=== PATIENT | female | born 1970 | race Hispanic/Latino ===

== ENCOUNTER 2018-01-01 19:40 | Emergency (ER) | payer SELFPAY ==
[2018-01-01 20:38] LABS: Absolute Lymphocytes (CBC) 1.7 K/uL (0.7-4.9); Absolute Monocytes 0.6 K/uL (0.1-1.3); Basophils % 0.4 % (0-1.3); Eosinophils % 2.4 % (0-4.4); Hematocrit 37.4 % (36.0-45.0); Lymphocytes % 22.2 % (15.3-44.8); MCH 32.7 pg (27.0-35.0); MCV 94.6 fL (80-100); MPV 10.1 fL (7.6-11.3); Monocytes % 7.7 % (3.3-12.3); RBC Red Blood Cell Count 3.96 M/uL (3.86-4.86)
[2018-01-01] MEDS ORDERED: LIDOCAINE VISCOUS 2% SOLN 15 ML UDC ONE (20:38)
[2018-01-01] MEDS ORDERED: MAGNE/ALUM HYDROXD 30 ML UCUP ONE (20:38)
[2018-01-01] MEDS ORDERED: FAMOTIDINE 20 MG/2 ML VIAL IV ONE (20:39)
[2018-01-01 20:54] LABS: Bilirubin Direct 0.1 mg/dL (0-0.2); Bilirubin Total 0.5 mg/dL (0.2-1.0); Potassium 3.9 mmol/L (3.5-5.1); Protein, Total 7.8 g/dL (6.4-8.2)
--- NOTE | 2018-01-02 00:02 | EDPHYS ---
Physician Documentation [facility] Name: Zeny Alcazar Age: 47 yrs Sex: Female : 1970 Arrival Date: 01/01/2018 Time: 19:44 Bed 17 Private MD: ED Physician Sean Chavez HPI: 01/01 21:29 This 47 yrs old Female presents to ER via Ambulatory with complaints of jr8 Abdominal Pain, Abdominal Swelling. 21:29 The patient presents with abdominal pain in the epigastric area. Onset: The jr8 symptoms/episode began/occurred acutely, yesterday. The symptoms do not radiate. Associated signs and symptoms: none. The symptoms are described as burning. Modifying factors: The symptoms are alleviated by nothing, the symptoms are aggravated by nothing. Severity of pain: At its worst the pain was mild in the emergency department the pain is unchanged. The patient has not experienced similar symptoms in the past. The patient has not recently seen a physician. 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 - Social history:: Smoking status: Patient/guardian denies using tobacco. - Ebola Screening: : Patient denies travel to an Ebola-affected area in the 21 days before illness onset. ROS: 21:29 Eyes: Negative for injury, pain, redness, and discharge, ENT: Negative for injury, jr8 pain, and discharge, Neck: Negative for injury, pain, and swelling, Cardiovascular: Negative for chest pain, palpitations, and edema, Respiratory: Negative for shortness of breath, cough, wheezing, and pleuritic chest pain, Back: Negative for injury and pain, MS/Extremity: Negative for injury and deformity, Skin: Negative for injury, rash, and discoloration, Neuro: Negative for headache, weakness, numbness, tingling, and seizure. 21:29 Abdomen/GI: Positive for abdominal pain, Negative for nausea, vomiting, and diarrhea, abdominal distension, anorexia, dysphagia, hematemesis, black/tarry stool, rectal pain, rectal bleeding, bowel incontinence, flatulence. Exam: 21:29 Cardiovascular: Regular rate and rhythm with a normal S1 and S2. No gallops, murmurs, jr8 or rubs. Normal PMI, no JVD. No pulse deficits. Respiratory: Lungs have equal breath sounds bilaterally, clear to auscultation and percussion. No rales, rhonchi or wheezes noted. No increased work of breathing, no retractions or nasal flaring. Back: No spinal tenderness. No costovertebral tenderness. Full range of motion. Skin: Warm, dry with normal turgor. Normal color with no rashes, no lesions, and no evidence of cellulitis. MS/ Extremity: Pulses equal, no cyanosis. Neurovascular intact. Full, normal range of motion. Neuro: Awake and alert, GCS 15, oriented to person, place, time, and situation. Cranial nerves II-XII grossly intact. Motor strength 5/5 in all extremities. Sensory grossly intact. Cerebellar exam normal. Normal gait. 21:29 Abdomen/GI: Inspection: abdomen appears normal, Bowel sounds: active, all quadrants, Palpation: soft, in all quadrants, mild abdominal tenderness, in the epigastric area and right upper quadrant, mass, is not appreciated, rebound tenderness, is not appreciated, voluntary guarding, is not appreciated, involuntary guarding, is not appreciated, no appreciated organomegaly, Indicators: McBurney's point is not tender, Zimmerman's sign is negative, Rovsing's sign is negative, Liver: no appreciated palpable abnormalities, tenderness, is not appreciated. Vital Signs: 19:57 BP 135 / 93; Pulse 67; Resp 18; Temp 97.3; Pulse Ox 95% on R/A; Weight 77.11 kg (R); aj1 Height 5 ft. 0 in. (152.40 cm) (R); Pain 7/10; 22:23 BP 122 / 79; Pulse 64; Resp 17 S; Pulse Ox 95% on R/A; jd3 23:36 BP 126 / 89; Pulse 65; Resp 16 S; Pulse Ox 98% on R/A; jd3 01/02 00:21 BP 127 / 76; Pulse 65; Resp 16 S; Pulse Ox 97% on R/A; jd3 01/01 19:57 Body Mass Index 33.20 (77.11 kg, 152.40 cm) aj1 MDM: 01/01 20:06 Patient medically screened. jr8 23:59 Data reviewed: vital signs, nurses notes, lab test result(s), radiologic studies, jr8 ultrasound, and as a result, I will discharge patient. Data interpreted: Pulse oximetry: on room air is 98 %. Interpretation: normal. 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 Response to treatment: the patient's symptoms have markedly improved after treatment. 01/01 20:06 Order name: Basic Metabolic Panel; Complete Time: 21:18 01/01 20:06 Order name: CBC with Diff; Complete Time: 20:44 [facility] 01/01 20:06 Order name: Creatinine for Radiology; Complete Time: 21:18 [facility] 01/01 20:06 Order name: Hepatic Function; Complete Time: 21:18 01/01 20:06 Order name: Lipase; Complete Time: 21:18 01/01 21:19 Order name: US Abdomen Limited 01/01 20:06 Order name: IV Saline Lock; Complete Time: 20:32 8 01/01 20:06 Order name: Labs collected and sent; Complete Time: 20:32 jr Administered Medications: 20:43 Drug: Pepcid 20 mg Route: IVP; Site: right antecubital; jd3 01/02 00:22 Follow up: Response: No adverse reaction jd3 01/01 20:43 Drug: GI Cocktail without - (Maalox Suspension 30 ml, Lidocaine Liquid 2 % 15 jd3 ml) Route: PO; 01/02 00:22 Follow up: Response: No adverse reaction jd3 Disposition: 09:30 Co-signature as Attending Physician, Sean Chavez MD I agree with the assessment and polo plan of care. Disposition: 01/02/18 00:01 Discharged to Home. Impression: Gastritis, unspecified, without bleeding. - Condition is Stable. - Discharge Instructions: Gastritis, Adult. - Prescriptions for omeprazole 40 mg Oral capsule,delayed release(DR/EC) - take 1 capsule by ORAL route once daily before a meal; 30 capsule. - Medication Reconciliation Form, Thank You Letter, Antibiotic Education, Prescription Opioid Use form. - Follow up: Micah Washburn MD; When: 2 - 3 days; Reason: Recheck today's complaints, Continuance of care, Re-evaluation by your physician. - Problem is new. - Symptoms have improved. Signatures: Dispatcher [employer] EDNorma Díaz RN RN aj1 Sean Chavez MD MD cha Roszak, Josh, PA PA jr8 Clay Yancey RN RN jd3 Corrections: (The following items were deleted from the chart) 00:23 00:01 01/02/2018 00:01 Discharged to Home. Impression: Gastritis, unspecified, without jd3 bleeding. Condition is Stable. Forms are Medication Reconciliation Form, Thank You Letter, Antibiotic Education, Prescription Opioid Use. Follow up: Micah Washburn; When: 2 - 3 days; Reason: Recheck today's complaints, Continuance of care, Re-evaluation by your physician. Problem is new. Symptoms have improved. jr8
--- NOTE | 2018-01-02 00:02 | ER ---
Nurse's Notes [facility] Name: Zeny Alcazar Age: 47 yrs Sex: Female : 1970 Arrival Date: 01/01/2018 Time: 19:44 Bed 17 Private MD: Diagnosis: Gastritis, unspecified, without bleeding Presentation: 01/01 19:52 Presenting complaint: Patient states: She was eating some peppers the other day, then aj1 in the middle of the night she started having epigastric pain, bloating. It went away for a bit and now its back, but not as severe. Reports an burning pain the the epigastric area, radiated to RUQ, LUQ. Denies N/v/D. Transition of care: patient was not received from another setting of care. Onset of symptoms was December 30, 2017. Risk Assessment: Do you want to hurt yourself or someone else? Patient reports no desire to harm self or others. Initial Sepsis Screen: Does the patient meet any 2 criteria? No. Patient's initial sepsis screen is negative. Does the patient have a suspected source of infection? No. Patient's initial sepsis screen is negative. Care prior to arrival: None. 19:52 Method Of Arrival: Ambulatory aj1 19:52 Acuity: MICHAEL 3 aj1 Triage Assessment: 19:57 General: Appears in no apparent distress. uncomfortable, Behavior is calm, cooperative, aj1 appropriate for age. Pain: Complains of pain in epigastric area Pain radiates to right upper quadrant and left upper quadrant Pain currently is 7 out of 10 on a pain scale. at worst was 10 out of 10 on a pain scale. Quality of pain is described as burning, pressure, Pain began 2-3 days ago. Neuro: Level of Consciousness is awake, alert, obeys commands, Speech is normal. Cardiovascular: Patient's skin is warm and dry. Respiratory: Airway is patent Respiratory effort is even, unlabored, Respiratory pattern is regular, symmetrical. GI: Reports upper abdominal pain, bloating, Patient currently denies diarrhea, nausea, vomiting. 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 - Social history:: Smoking status: Patient/guardian denies using tobacco. - Ebola Screening: : Patient denies travel to an Ebola-affected area in the 21 days before illness onset. Screenin:47 Abuse screen: Denies threats or abuse. Nutritional screening: No deficits noted. jd3 Tuberculosis screening: No symptoms or risk factors identified. Fall Risk Ambulatory Aid- None/Bed Rest/Nurse Assist (0 pts). Gait- Normal/Bed Rest/Wheelchair (0 pts) Mental Status- Oriented to own ability (0 pts). Total Miguel Fall Scale indicates No Risk (0-24 pts). Assessment: 20:38 General: Appears in no apparent distress. uncomfortable, Behavior is calm, cooperative, jd3 appropriate for age. Pain: Complains of pain in abdomen Pain does not radiate. Quality of pain is described as aching, pressure, Is intermittent. Neuro: Level of Consciousness is awake, alert, obeys commands, Oriented to person, place, time, situation. 20:38 Cardiovascular: Capillary refill < 3 seconds Patient's skin is warm and dry. jd3 Respiratory: Airway is patent Respiratory effort is even, unlabored, Respiratory pattern is regular, symmetrical. GI: Abdomen is round Bowel sounds present X 4 quads. Abd is soft and non tender X 4 quads. Patient currently denies nausea, vomiting. : No signs and/or symptoms were reported regarding the genitourinary system. EENT: No signs and/or symptoms were reported regarding the EENT system. Derm: Skin is intact, Skin is dry, Skin is normal, Skin temperature is warm. Musculoskeletal: Circulation, motion, and sensation intact. Range of motion: intact in all extremities. 21:30 Reassessment: Patient appears in no apparent distress at this time. Patient and/or jd3 family updated on plan of care and expected duration. Pain level reassessed. Patient is alert, oriented x 3, equal unlabored respirations, skin warm/dry/pink. 22:23 Reassessment: Patient appears in no apparent distress at this time. Patient and/or jd3 family updated on plan of care and expected duration. Pain level reassessed. Patient is alert, oriented x 3, equal unlabored respirations, skin warm/dry/pink. Patient states feeling better. 23:37 Reassessment: Patient appears in no apparent distress at this time. Patient and/or jd3 family updated on plan of care and expected duration. Pain level reassessed. Patient is alert, oriented x 3, equal unlabored respirations, skin warm/dry/pink. 01/02 00:22 Reassessment: Patient appears in no apparent distress at this time. Patient and/or jd3 family updated on plan of care and expected duration. Pain level reassessed. Patient is alert, oriented x 3, equal unlabored respirations, skin warm/dry/pink. pt reported understanding of discharge instructions, even and steady gait upon discharge. Patient states feeling better. Vital Signs: 01/01 19:57 BP 135 / 93; Pulse 67; Resp 18; Temp 97.3; Pulse Ox 95% on R/A; Weight 77.11 kg (R); aj1 Height 5 ft. 0 in. (152.40 cm) (R); Pain 7/10; 22:23 BP 122 / 79; Pulse 64; Resp 17 S; Pulse Ox 95% on R/A; jd3 23:36 BP 126 / 89; Pulse 65; Resp 16 S; Pulse Ox 98% on R/A; jd3 01/02 00:21 BP 127 / 76; Pulse 65; Resp 16 S; Pulse Ox 97% on R/A; jd3 01/01 19:57 Body Mass Index 33.20 (77.11 kg, 152.40 cm) aj1 ED Course: 01/01 19:44 Patient arrived in ED. al2 19:56 Triage completed. aj1 19:57 Arm band placed on Patient placed in an exam room. aj1 20:02 Clay Yancey, EL is Primary Nurse. jd3 20:06 Jamin Hernandez PA is PHCP. jr8 20:06 Sean Chavez MD is Attending Physician. jr8 20:29 Inserted saline lock: 20 gauge in right antecubital area, using aseptic technique. jd3 Blood collected. 20:47 Patient has correct armband on for positive identification. Bed in low position. Call jd3 light in reach. Side rails up X 1. Adult w/ patient. 21:41 Ultrasound completed. Patient tolerated well. sg3 21:57 US Abdomen Limited In Process Unspecified. EDMS 01/02 00:01 Micah Washburn MD is Referral Physician. jr8 00:21 No provider procedures requiring assistance completed. IV discontinued, intact, jd3 bleeding controlled, No redness/swelling at site. Pressure dressing applied. Administered Medications: 01/01 20:43 Drug: Pepcid 20 mg Route: IVP; Site: right antecubital; jd3 01/02 00:22 Follow up: Response: No adverse reaction jd3 01/01 20:43 Drug: GI Cocktail without - (Maalox Suspension 30 ml, Lidocaine Liquid 2 % 15 jd3 ml) Route: PO; 01/02 00:22 Follow up: Response: No adverse reaction jd3 Outcome: 00:01 Discharge ordered by . jr8 00:21 Discharged to home ambulatory, with family. jd3 00:21 Condition: stable 00:21 Discharge instructions given to patient, family, Instructed on discharge instructions, follow up and referral plans. medication usage, Demonstrated understanding of instructions, follow-up care, medications, Prescriptions given X 1. 00:23 Patient left the ED. jd3 Signatures: Dispatcher [employer] EDAL Norma Pascal, RN RN aj1 Jamin Hernandez PA PA jr8 Clay Yancey RN RN jd3 Annie Heredia sg3 Nela Palacios Corrections: (The following items were deleted from the chart) 01/01 21:59 21:58 Ultrasound completed. Patient tolerated well. sg3 sg3
--- NOTE | 2018-01-02 07:55 | RAD REPORT ---
EXAM DESCRIPTION: US - Abdomen Exam Limited - 01/01/2018 9:59 pm CLINICAL HISTORY: Abdominal pain. Right upper quadrant pain COMPARISON: None. FINDINGS: The gallbladder wall is not thickened. A gallstone is not seen. The biliary tree is normal caliber. The liver has an increased echotexture consistent with fatty infiltration IMPRESSION: Unremarkable gallbladder ultrasound.
== END 2018-01-02 00:23 | disposition home or self-care (01) ==
LOC: ER 19:40
DX: K29.70 Gastritis, unspecified, without bleeding (principal); J45.909 Unspecified asthma, uncomplicated
CPT/HCPCS: 36415; 76705; 80048; 80076; 83690; 85025; 96374; 99284

== ENCOUNTER 2018-08-04 19:47 | Emergency (ER) | payer SELFPAY ==
[2018-08-04 21:21] LABS: Absolute Lymphocytes (CBC) 1.9 K/uL (0.7-4.9); Absolute Monocytes 0.6 K/uL (0.1-1.3); Absolute Neutrophil 4.7 K/uL (1.8-8.0); Basophils % 0.6 % (0-1.3); Eosinophils % 2.4 % (0-4.4); Hematocrit 36.5 % (36.0-45.0); Lymphocytes % 25.6 % (15.3-44.8); MPV 10.1 fL (7.6-11.3); Monocytes % 7.9 % (3.3-12.3); RBC Red Blood Cell Count 3.85 M/uL (3.86-4.86)
[2018-08-04 21:34] LABS: Potassium 4.2 mmol/L (3.5-5.1)
--- NOTE | 2018-08-04 22:55 | ER ---
Nurse's Notes [facility] Name: Zeny Alcazar Age: 48 yrs Sex: Female : 1970 Arrival Date: 08/04/2018 Time: 19:49 Bed 25 Private MD: Diagnosis: Right Parotitis;Headache Presentation: 08/04 20:04 Presenting complaint: Patient states: [place] a swollen gland to right side of face/neck lp1 that began today; States no pain to mouth, on movement; Pain only on palpation; Denies any fever, cough, congestion. Transition of care: patient was not received from another setting of care. Onset of symptoms was August 04, 2018. Risk Assessment: Do you want to hurt yourself or someone else? Patient reports no desire to harm self or others. Initial Sepsis Screen: Does the patient meet any 2 criteria? No. Patient's initial sepsis screen is negative. Does the patient have a suspected source of infection? No. Patient's initial sepsis screen is negative. Care prior to arrival: None. 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 - Social history:: Smoking status: Patient/guardian denies using tobacco. - Ebola Screening: : No symptoms or risks identified at this time. Screenin:07 Abuse screen: Denies threats or abuse. Denies injuries from another. Nutritional lp1 screening: No deficits noted. Tuberculosis screening: No symptoms or risk factors identified. Fall Risk None identified. Assessment: 20:20 General: Appears in no apparent distress. comfortable, Behavior is calm, cooperative, ca1 appropriate for age. Pain: Complains of pain in right jaw and right cheek Pain does not radiate. Pain currently is 6 out of 10 on a pain scale. Neuro: Level of Consciousness is awake, alert, obeys commands, Oriented to person, place, time, situation. Cardiovascular: Heart tones S1 S2 present Capillary refill < 3 seconds Patient's skin is warm and dry. Respiratory: Airway is patent Respiratory effort is even, unlabored, Respiratory pattern is regular, symmetrical, Breath sounds are clear bilaterally. Denies cough. GI: Abdomen is flat, non-distended, Bowel sounds present X 4 quads. Abd is soft and non tender X 4 quads. : No signs and/or symptoms were reported regarding the genitourinary system. EENT: Ear canal clear on right ear Throat is pink Reports pain behind Right Eye. Denies nasal congestion, difficulty swallowing. Derm: Skin is intact, is healthy with good turgor, Skin is pink, warm \T\ dry. Musculoskeletal: Circulation, motion, and sensation intact. 21:45 Reassessment: PT at CT scan. ca1 22:25 Reassessment: Patient appears in no apparent distress at this time. Patient and/or ca1 family updated on plan of care and expected duration. Pain level reassessed. Patient is alert, oriented x 3, equal unlabored respirations, skin warm/dry/pink. 23:01 Reassessment: patient for discharge after completing iv antibiotic. mg2 23:30 Reassessment: Patient appears in no apparent distress at this time. Patient is alert, ca1 oriented x 3, equal unlabored respirations, skin warm/dry/pink. Vital Signs: 20:07 BP 139 / 89; Pulse 69; Resp 18; Temp 98.4(O); Pulse Ox 100% on R/A; Weight 81.65 kg; lp1 Height 5 ft. 0 in. (152.40 cm); Pain 7/10; 21:10 BP 154 / 90; Pulse 65; Resp 18; Pulse Ox 99% on R/A; ca1 22:20 BP 139 / 76; Pulse 65; Resp 18; Pulse Ox 100% ; ca1 23:30 BP 117 / 73; Pulse 66; Resp 18; Pulse Ox 100% on R/A; ca1 20:07 Body Mass Index 35.15 (81.65 kg, 152.40 cm) lp1 ED Course: 19:49 Patient arrived in ED. es 20:06 Triage completed. lp1 20:06 Arm band placed on right wrist. lp1 20:20 Patient has correct armband on for positive identification. Placed in gown. Bed in low ca1 position. Call light in reach. Side rails up X 1. 20:20 Pulse ox on. NIBP on. ca1 20:24 Palma Sutherland, RN is Primary Nurse. ca1 20:43 Sean Rincon PA is PHCP. cp 20:43 Charlie Jenkins MD is Attending Physician. cp 21:10 Radiology exam delayed due to lab results not completed at this time. (BUN/Creatinine). vr 21:13 No provider procedures requiring assistance completed. Inserted saline lock: 20 gauge mg2 in left antecubital area, using aseptic technique. Blood collected. 21:35 Radiology exam delayed due to lab results not completed at this time. (BUN/Creatinine). vr 21:[address] via wheelchair. vr 22:07 CT Head Brain wo Cont In Process Unspecified. EDMS 22:08 Soft Tissue Neck W/Contr In Process Unspecified. EDMS 22:53 Sandra Ordoñez MD is Referral Physician. cp 23:32 IV discontinued, intact, bleeding controlled, No redness/swelling at site. Pressure ca1 dressing applied. Administered Medications: 22:57 Drug: Clindamycin 900 mg Route: IVPB; Infused Over: 30 mins; Site: left antecubital; mg2 23:33 Follow up: Response: No adverse reaction ca1 23:33 Follow up: IV Status: Completed infusion ca1 Outcome: 22:54 Discharge ordered by MD. cp 23:35 Discharged to home ambulatory. ca1 23:35 Condition: stable 23:35 Discharge instructions given to patient, Instructed on discharge instructions, follow up and referral plans. medication usage, Demonstrated understanding of instructions, follow-up care, medications, Prescriptions given X 2. 23:35 Patient left the ED. ca1 Signatures: Dispatcher [employer] EDMT Lindy Gonzalez Victoria vr Shannon Tompkins, RN RN lp1 Sean Rincon PA PA cp Reno Romeo RN RN mg2 Palma Sutherland RN RN ca1
--- NOTE | 2018-08-04 22:55 | EDPHYS ---
Physician Documentation [facility] Name: Zeny Alcazar Age: 48 yrs Sex: Female : 1970 Arrival Date: 08/04/2018 Time: 19:49 Bed 25 Private MD: ED Physician Charlie Jenkins HPI: 08/04 21:05 This 48 yrs old Female presents to ER via Ambulatory with complaints of cp Swollen Glands. 21:05 The patient or guardian complains of pain, that is acute, swelling. cp 21:05 The symptoms are located right posterior and lower jaw. cp 21:05 Onset: The symptoms/episode began/occurred this morning. cp 21:05 Context: The neck injury/problem resulted from from unknown cause. Associated signs and cp symptoms: Pertinent positives: headache, Pertinent negatives: fever, vomiting, dental pain. The pain does not radiate. Severity of symptoms: in the emergency department the symptoms are actually worse. 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 - Social history:: Smoking status: Patient/guardian denies using tobacco. - Ebola Screening: : No symptoms or risks identified at this time. ROS: 21:10 Constitutional: Negative for body aches, chills, fever, poor PO intake. cp 21:10 Eyes: Negative for injury, pain, redness, and discharge. cp 21:10 ENT: Positive for of the right posterior lower jaw, swelling and pain, Negative for drainage from ear(s), ear pain, dental pain, difficulty swallowing, difficulty handling secretions, hoarseness. 21:10 Neck: Negative for stiffness. 21:10 Cardiovascular: Negative for chest pain, edema, palpitations. 21:10 Respiratory: Negative for cough, shortness of breath, wheezing. 21:10 Abdomen/GI: Negative for abdominal pain, nausea, vomiting, and diarrhea. 21:10 : Negative for urinary symptoms. 21:10 Skin: Negative for cellulitis, rash. 21:10 Neuro: Positive for headache, Negative for altered mental status, numbness, weakness. 21:10 All other systems are negative. Exam: 21:35 Constitutional: The patient appears in no acute distress, alert, awake, non-toxic, well cp developed, well nourished. 21:35 Head/face: Noted is swelling, that is mild, of the right posterior lower jaw, tenderness, that is moderate, Sinus tenderness, is not appreciated. 21:35 Eyes: Periorbital structures: appear normal, Pupils: equal, round, and reactive to light and accomodation, Extraocular movements: intact throughout, Conjunctiva: normal, no exudate, no injection, Sclera: no appreciated abnormality, Lids and lashes: appear normal, bilaterally. 21:35 ENT: External ear(s): are unremarkable, Ear canal(s): are normal, clear, TM's: bulging, is not appreciated, bilaterally, dullness, bilaterally, erythema, is not appreciated, bilaterally, Nose: is normal, Mouth: Lips: moist, Oral mucosa: pink and intact, moist, Gums: normal with healthy appearance, Tongue: is normal, abscess, is not appreciated, Posterior pharynx: Airway: no evidence of obstruction, patent, Tonsils: are normal in appearance, Uvula: midline, swelling, is not appreciated, erythema, is not appreciated, exudate, is not appreciated, Dental exam: abscess, is not appreciated, dental caries, not appreciated, pain, is not appreciated, Voice: is normal. 21:35 Neck: External neck: swelling, that is mild, right upper lateral neck, tenderness, that is mild. 21:35 Chest/axilla: Inspection: normal, Palpation: is normal, no crepitus, no tenderness. 21:35 Cardiovascular: Rate: normal, Rhythm: regular. 21:35 Respiratory: the patient does not display signs of respiratory distress, Respirations: normal, no use of accessory muscles, no retractions, no splinting, no tachypnea, labored breathing, is not present, Breath sounds: are clear throughout, no decreased breath sounds, no stridor, no wheezing. 21:35 Abdomen/GI: Exam negative for discomfort, distension, guarding, Inspection: abdomen appears normal. 21:35 Skin: cellulitis, is not appreciated, no rash present. 21:35 Neuro: Orientation: to person, place \T\ time. Mentation: is normal, Cerebellar function: is grossly normal, Motor: moves all fours, strength is normal, Sensation: is normal. Vital Signs: 20:07 BP 139 / 89; Pulse 69; Resp 18; Temp 98.4(O); Pulse Ox 100% on R/A; Weight 81.65 kg; lp1 Height 5 ft. 0 in. (152.40 cm); Pain 7/10; 21:10 BP 154 / 90; Pulse 65; Resp 18; Pulse Ox 99% on R/A; ca1 22:20 BP 139 / 76; Pulse 65; Resp 18; Pulse Ox 100% ; ca1 23:30 BP 117 / 73; Pulse 66; Resp 18; Pulse Ox 100% on R/A; ca1 20:07 Body Mass Index 35.15 (81.65 kg, 152.40 cm) lp1 MDM: 20:43 Patient medically screened. cp 21:30 Differential diagnosis: abscess, dental pain, lymphadenopathy. cp 22:52 Data reviewed: vital signs, nurses notes, lab test result(s), radiologic studies, CT cp scan, and as a result, I will discharge patient. 22:52 Counseling: I had a detailed discussion with the patient and/or guardian regarding: the cp historical points, exam findings, and any diagnostic results supporting the discharge/admit diagnosis, lab results, radiology results, the need for outpatient follow up, an ENT specialist, to return to the emergency department if symptoms worsen or persist or if there are any questions or concerns that arise at home. 08/04 21:02 Order name: CBC with Diff; Complete Time: 22:42 cp 08/04 21:02 Order name: BMP; Complete Time: 22:42 cp 08/04 21:02 Order name: Strep; Complete Time: 22:42 cp 08/04 21:07 Order name: CT Head Brain wo Cont cp 08/04 21:43 Order name: Throat Culture EDMS 08/04 21:02 Order name: IV; Complete Time: 21:13 cp 08/04 21:54 Order name: Soft Tissue Neck W/Contr EDMS Administered Medications: 22:57 Drug: Clindamycin 900 mg Route: IVPB; Infused Over: 30 mins; Site: left antecubital; mg2 23:33 Follow up: Response: No adverse reaction ca1 23:33 Follow up: IV Status: Completed infusion ca1 Disposition: 23:45 Chart complete. cp 08/05 03:56 Co-signature as Attending Physician, Charlie Jenkins MD I agree with the assessment and wa plan of care. Disposition: 08/04/18 22:54 Discharged to Home. Impression: Right Parotitis, Headache. - Condition is Stable. - Discharge Instructions: General Headache Without Cause, Parotitis. - Prescriptions for Clindamycin HCl 300 mg Oral Capsule - take 1 capsule by ORAL route every 6 hours for 10 days; 40 capsule. Ibuprofen 800 mg Oral Tablet - take 1 tablet by ORAL route every 8 hours As needed take with food; 30 tablet. - Medication Reconciliation Form, Thank You Letter, Antibiotic Education, Prescription Opioid Use form. - Follow up: Sandra Ordoñez MD; When: 2 - 3 days; Reason: Recheck today's complaints. - Problem is new. - Symptoms have improved. Signatures: Dispatcher [employer] EDWI Shannon Tompkins RN RN lp1 Sean Rincon PA PA Charlie Self MD MD ri Reno Romeo RN RN mg2 Palma Sutherland RN RN ca1 Corrections: (The following items were deleted from the chart) 08/04 21:54 21:08 Facial Bones W/ Con \T\ [id number].RAD.BRZ ordered. [facility] EDWI 22:55 22:54 08/04/2018 22:54 Discharged to Home. Impression: Right Parotitis. Condition is cp Stable. Forms are Medication Reconciliation Form, Thank You Letter, Antibiotic Education, Prescription Opioid Use. Follow up: Sandra Ordoñez; When: 2 - 3 days; Reason: Recheck today's complaints. Problem is new. Symptoms have improved. cp 23:35 22:55 08/04/2018 22:54 Discharged to Home. Impression: Right Parotitis; Headache. ca1 Condition is Stable. Discharge Instructions: Parotitis. Prescriptions for Clindamycin HCl 300 mg Oral Capsule - take 1 capsule by ORAL route every 6 hours for 10 days; 40 capsule, Ibuprofen 800 mg Oral Tablet - take 1 tablet by ORAL route every 8 hours As needed take with food; 30 tablet. and Forms are Medication Reconciliation Form, Thank You Letter, Antibiotic Education, Prescription Opioid Use. Follow up: Sandra Ordoñez; When: 2 - 3 days; Reason: Recheck today's complaints. Problem is new. Symptoms have improved. cp
[2018-08-04] MEDS ORDERED: CLINDAMYCIN 900MG/D5W 900 MG/50 ML IVPB IV ONE (23:05)
--- NOTE | 2018-08-07 20:59 | RAD REPORT ---
EXAM DESCRIPTION: CT - Soft Tissue Neck W/Contr - 08/04/2018 10:35 pm CLINICAL HISTORY: 48 years Female, swelling right side of face COMPARISON: CT head without contrast of the same day. TECHNIQUE: Contiguous axial images of the neck after the administration of IV contrast. This exam was performed according to our departmental dose-optimization program, which includes autom ated exposure control, adjustment of the mA and/or kV according to patient size and/or less of iterat lucinda reconstruction technique. FINDINGS: Thyroid: Within normal limits Submandibular: Unremarkable. Parotid: 0.9 x 0.8 cm enhancing rounded nodule is seen in the interior aspect of the superior right p arotid lobe. [place] tonsils: Unremarkable. Parapharyngeal fat: No displacement. Epiglottis: Unremarkable. Senior Energy Market Coordinator space: Unremarkable. Lymph nodes: Multiple nonenlarged multistation bilateral cervical lymph nodes are present. No lymphad enopathy. Prevertebral space: No edema. Vascular structures: Unremarkable. Intracranial compartment: Within normal limits. Paranasal sinuses: Trace air-fluid level in the left sphenoid sinus. Bones: Reversal of normal cervical lordosis centered at C5 Lungs: Apical lung zones are clear. IMPRESSION: 1. No acute abnormality of the soft tissue neck. 2. Subcentimeter superior right parotid lobe nodule. Finding could represent small intramammary lymph node versus pleomorphic adenoma. MRI face with and without contrast may be of diagnostic use. 3. Trace fluid layering in the left sphenoid sinus. Electronically signed by: Leon Muller DO 08/04/2018 10:17 PN CLINICAL DATA COORDINATOR Due to temporary technical issues with the PACS/Fluency reporting system, reports are being signed by the in house radiologist as a courtesy to ensure prompt reporting. The interpreting radiologist is f ully responsible for the content of the report.
--- NOTE | 2018-08-08 09:53 | RAD REPORT ---
EXAM DESCRIPTION: CT - Head Brain Wo Cont - 08/04/2018 10:35 pm CLINICAL HISTORY: 48 years Female HEADACHE COMPARISON: None. TECHNIQUE: Contiguous axial images of the brain were obtained without the administration of intraven ous contrast. This exam was performed according to our departmental dose-optimization program, which includes automated exposure control, adjustment of the mA and/or kV according to patient size and/or less of iterative reconstruction technique. FINDINGS: Brain: No acute intracranial hemorrhage. No acute territorial infarct. No extra-axial joan ection. No mass effect or herniation. Ventricles: Within normal limit in size and configuration. Globes and orbits: No acute abnormality, Bones: No acute osseous finding. Paranasal sinuses: Paranasal sinuses are clear. Mastoid air cells: Well pneumatized. Soft tissues: Within normal limits. Swine Nutritionist view shows no additional significant finding. IMPRESSION: No acute intracranial abnormality. Electronically signed by: Cedric Muller DO 08/04/2018 10:10 PM PAN DEVULCANIZER HELPER Due to temporary technical issues with the PACS/Fluency reporting system, reports are being signed by the in house radiologist as a courtesy to ensure prompt reporting. The interpreting radiologist is f ully responsible for the content of the report.
== END 2018-08-04 23:35 | disposition home or self-care (01) ==
LOC: ER 19:47
DX: K11.20 Sialoadenitis, unspecified (principal)
CPT/HCPCS: 36415; 70450; 70491; 80048; 85025; 87070; 87081; 96365; 99284; Q9967

== ENCOUNTER 2018-11-12 17:10 | Emergency (ER) | payer SELFPAY ==
--- NOTE | 2018-11-12 17:36 | ER ---
Nurse's Notes [facility] Name: Zeny Alcazar Age: 48 yrs Sex: Female : 1970 Arrival Date: 11/12/2018 Time: 17:12 Bed 14 Private MD: Diagnosis: Rash and other nonspecific skin eruption Presentation: 11/12 17:23 Presenting complaint: Patient states: Intermittent rash, itching and burning to lay ph cheeks and eyelids, denies fever or SOB. Transition of care: patient was not received from another setting of care. Onset of symptoms was November 12, 2018. Risk Assessment: Do you want to hurt yourself or someone else? Patient reports no desire to harm self or others. Initial Sepsis Screen: Does the patient meet any 2 criteria? No. Patient's initial sepsis screen is negative. Does the patient have a suspected source of infection? No. Patient's initial sepsis screen is negative. Care prior to arrival: None. 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 - Social history:: Smoking status: Patient/guardian denies using tobacco. - Ebola Screening: : Patient negative for fever greater than or equal to 101.5 degrees Fahrenheit, and additional compatible Ebola Virus Disease symptoms. Screenin:20 Abuse screen: Denies threats or abuse. Nutritional screening: No deficits noted. rb1 Tuberculosis screening: No symptoms or risk factors identified. Fall Risk None identified. Assessment: 17:20 General: Appears in no apparent distress. comfortable, Behavior is calm, cooperative, rb1 Denies fever. Pain: Denies pain. Neuro: Level of Consciousness is awake, alert, obeys commands, Oriented to person, place, time, situation. Cardiovascular: Capillary refill < 3 seconds is brisk in bilateral fingers. Respiratory: Airway is patent Respiratory effort is even, unlabored, Respiratory pattern is regular, symmetrical. GI: No signs and/or symptoms were reported involving the gastrointestinal system. : No signs and/or symptoms were reported regarding the genitourinary system. Derm: Rash noted that is itchy, red, on face c/o burning. Musculoskeletal: Range of motion: intact in all extremities. 17:40 Reassessment: Discharge pending due to shot time. rb1 18:11 Reassessment: Patient appears in no apparent distress at this time. No changes from rb1 previously documented assessment. Vital Signs: 17:24 BP 136 / 78; Pulse 65; Resp 18; Temp 98.1; Pulse Ox 97% on R/A; Weight 81.65 kg; Height ph 5 ft. 0 in. (152.40 cm); 18:11 BP 111 / 77; Pulse 62; Resp 17; Temp 98.1(O); Pulse Ox 97% on R/A; Pain 0/10; rb1 17:24 Body Mass Index 35.15 (81.65 kg, 152.40 cm) ph ED Course: 17:12 Patient arrived in ED. tw3 17:16 Eliane Platt, EL is Primary Nurse. rb1 17:16 Alejandro Burns PA is PHCP. [facility] 17:16 Archie Thomson MD is Attending Physician. [facility] 17:20 Patient has correct armband on for positive identification. Bed in low position. Call rb1 light in reach. Side rails up X 1. Pulse ox on. NIBP on. 17:24 Triage completed. ph 17:26 Arm band placed on Patient placed in an exam room, on a stretcher. ph 18:11 No provider procedures requiring assistance completed. Patient did not have IV access rb1 during this emergency room visit. Administered Medications: 17:40 Drug: Dexamethasone 10 mg Route: IM; Site: right deltoid; rb1 17:55 Follow up: Response: No adverse reaction rb1 Outcome: 17:36 Discharge ordered by . [facility] 18:11 Discharged to home ambulatory, with significant other. rb1 18:11 Condition: stable 18:11 Discharge instructions given to patient, Instructed on discharge instructions, follow up and referral plans. medication usage, Demonstrated understanding of instructions, follow-up care, medications, Prescriptions given X 2. 18:11 Patient left the ED. rb1 Signatures: Alejandro Burns PA PA Reyna Mar RN RN Eliane Platt RN RN rb1 Gerry, Tia tw3 Corrections: (The following items were deleted from the chart) 18:15 18:14 Patient left the ED. rb1 rb1
--- NOTE | 2018-11-12 17:36 | EDPHYS ---
Physician Documentation [facility] Name: Zeny Alcazar Age: 48 yrs Sex: Female : 1970 Arrival Date: 11/12/2018 Time: 17:12 Bed 14 Private MD: ED Physician Archie Thomson HPI: 11/12 17:31 This 48 yrs old Female presents to ER via Ambulatory with complaints of Rash. [facility] 17:31 Onset: The symptoms/episode began/occurred gradually, 5 day(s) ago. This is a 48 year jmm old female with a history of asthma that presents to the ED with complaints of a facial rash. Patient states the rash initially developed this past Tuesday with papular lesions. Patient used otc medications with no relief. Patient denies fever. . 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 - Social history:: Smoking status: Patient/guardian denies using tobacco. - Ebola Screening: : Patient negative for fever greater than or equal to 101.5 degrees Fahrenheit, and additional compatible Ebola Virus Disease symptoms. ROS: 17:31 Constitutional: Negative for fever, chills, and weight loss, Cardiovascular: Negative [facility] for chest pain, palpitations, and edema, Respiratory: Negative for shortness of breath, cough, wheezing, and pleuritic chest pain. 17:31 Skin: Positive for rash, swelling. 17:31 All other systems are negative. Exam: 17:31 Eyes: EOMI, no conjunctival erythema appreciated ENT: Moist Mucus Membranes Neck: jmm Trachea midline, Supple Chest/axilla: Normal chest wall appearance and motion. Cardiovascular: Regular rate and rhythm. No edema appreciated Respiratory: Normal respirations, no respiratory distress appreciated Abdomen/GI: Non distended, soft Back: Normal ROM 17:31 Constitutional: The patient appears in no acute distress, alert, awake. 17:31 Head/face: erythema noted to the face with pustular lesions noted to the forehead and the chin. . 17:31 Skin: erythema noted to the cheeks with pustular lesions noted to the forehead and chin. 17:31 Neuro: Orientation: is normal, Mentation: is normal, Memory: is normal. 17:31 Psych: Behavior/mood is pleasant, cooperative. Vital Signs: 17:24 BP 136 / 78; Pulse 65; Resp 18; Temp 98.1; Pulse Ox 97% on R/A; Weight 81.65 kg; Height ph 5 ft. 0 in. (152.40 cm); 18:11 BP 111 / 77; Pulse 62; Resp 17; Temp 98.1(O); Pulse Ox 97% on R/A; Pain 0/10; rb1 17:24 Body Mass Index 35.15 (81.65 kg, 152.40 cm) ph MDM: 17:31 Patient medically screened. [facility] 17:31 ED course: Patient is alert and non toxic in appearance in the ED. Symptoms appear [facility] consistent with folliculitis. Patient is advised to follow up with dermatology and otherwise advised to return to the ED if she develops increased swelling, fever, or any other concerning symptoms. . 17:35 Data reviewed: vital signs, nurses notes. Counseling: I had a detailed discussion with brittney the patient and/or guardian regarding: the historical points, exam findings, and any diagnostic results supporting the discharge/admit diagnosis, the need for outpatient follow up, to return to the emergency department if symptoms worsen or persist or if there are any questions or concerns that arise at home. Administered Medications: 17:40 Drug: Dexamethasone 10 mg Route: IM; Site: right deltoid; rb1 17:55 Follow up: Response: No adverse reaction rb1 Disposition: 11/12/18 17:36 Discharged to Home. Impression: Rash and other nonspecific skin eruption. - Condition is Stable. - Discharge Instructions: Rash, Folliculitis. - Prescriptions for Hydroxyzine HCl 25 mg Oral Tablet - take 1 tablet by ORAL route every 6 hours As needed; 12 tablet. Doxycycline Hyclate 100 mg Oral Tablet - take 1 tablet by ORAL route every 12 hours; 20 tablet. - Medication Reconciliation Form, Thank You Letter, Antibiotic Education, Prescription Opioid Use form. - Follow up: Private Physician; When: 2 - 3 days; Reason: Recheck today's complaints, Continuance of care, Re-evaluation by your physician. Addendum: 11/16/2018 21:07 Co-signature as Attending Physician, Archie Thomson MD. g s Signatures: Alejandro Burns PA PA jmm Hall, Patricia RN RN ph Eliane Platt, RN RN [facility] Archie Thomson MD MD Corrections: (The following items were deleted from the chart) 11/12 18:14 17:36 11/12/2018 17:36 Discharged to Home. Impression: Rash and other nonspecific skin rb1 eruption. Condition is Stable. Forms are Medication Reconciliation Form, Thank You Letter, Antibiotic Education, Prescription Opioid Use. Follow up: Private Physician; When: 2 - 3 days; Reason: Recheck today's complaints, Continuance of care, Re-evaluation by your physician. sunil
[2018-11-12] MEDS ORDERED: DEXAMETHASONE 10 MG/ML VIAL ONE (17:51)
== END 2018-11-12 18:14 | disposition home or self-care (01) ==
LOC: ER 17:10
DX: R21 Rash and other nonspecific skin eruption (principal)
CPT/HCPCS: 96372; 99283; J1100

== ENCOUNTER 2023-10-17 16:15 | Emergency (ER) | payer BC ==
[2023-10-17] MEDS ORDERED: GABAPENTIN 300 MG CAP ONE (16:43)
[2023-10-17] MEDS ORDERED: KETOROLAC 30 MG/ML INJ ONE (16:44)
--- NOTE | 2023-10-17 17:09 | RAD REPORT ---
EXAM DESCRIPTION: CT - C Spine Wo Con - 10/17/2023 4:51 pm CLINICAL HISTORY: neck pain, right arm pain COMPARISON: Soft Tissue Neck W/Contr dated 08/04/2018 FINDINGS: The cervical vertebral body heights and disc spaces are maintained. Spondylosis noted lowe r cervical levels, [id number] No evidence of acute cervical spine fracture or subluxation. Prevertebral soft tissues are normal in thickness. IMPRESSION: Negative for acute cervical spine abnormality. Mild to moderate lower cervical spondylos is. Nonemergent MRI followup would be suggested. All CT scans are performed using dose optimization technique as appropriate and may include automated exposure control or mA/KV adjustment according to patient size.
--- NOTE | 2023-10-17 17:41 | EDPHYS ---
Physician Documentation [facility] Name: Zeny Alcazar Age: 53 yrs Sex: Female : 1970 Arrival Date: 10/17/2023 Time: 16:15 Bed Treatment Private MD: ED Physician Yao Carlos HPI: 10/16 16:52 This 53 yrs old Female presents to ER via Ambulatory with complaints of Arm rn Pain. 16:52 The patient or guardian complains of pain. The complaints affect the right arm. rn 16:53 Onset: The symptoms/episode began/occurred 3 month(s) ago. Associated signs and rn symptoms: Pertinent negatives: fever, weakness. Severity of symptoms: At their worst the symptoms were moderate, in the emergency department the symptoms have improved. The patient has experienced similar episodes in the past. Patient reports months of right arm pain, at times is associated with tingling, worse with movement and range of motion. Patient performs repetitive tasks at work including heavy lifting but also using her right hand often. Now starting to have pain that shoots into the left arm and hand. No trauma. No neck pain. No chest pain or shortness of breath.. Historical: - Allergies: 16:24 No Known Allergies; ko1 - Home Meds: 16:24 None [Active]; ko1 - PMHx: 16:24 Asthma; ko1 - PSHx: 16:24 None; ko1 - Immunization history:: Adult Immunizations up to date. - Infectious Disease History:: Denies. - Social history:: Smoking status: Patient denies any tobacco usage or history of. - Family history:: not pertinent. - Hospitalizations: : No recent hospitalization is reported. ROS: 16:53 Constitutional: Negative for fever, chills, and weight loss, Neck: Negative for injury, rn pain, and swelling, Cardiovascular: Negative for chest pain, palpitations, and edema, Respiratory: Negative for shortness of breath, cough, wheezing, and pleuritic chest pain, Abdomen/GI: Negative for abdominal pain, nausea, vomiting, diarrhea, and constipation, Back: Negative for injury and pain, MS/Extremity: Positive for right arm pain Skin: Negative for injury, rash, and discoloration, Neuro: Positive for intermittent numbness and tingling Exam: 16:53 Constitutional: This is a well developed, well nourished patient who is awake, alert, rn and in no acute distress. Head/Face: Normocephalic, atraumatic. Neck: No midline tenderness. Cardiovascular: Regular rate and rhythm. No pulse deficits. Skin: Warm, dry MS/ Extremity: Pulses equal, no cyanosis. Neurovascular intact. Full, normal range of motion. Equal circumference. Neuro: Awake and alert, GCS 15, oriented to person, place, time, and situation. Cranial nerves II-XII grossly intact. Motor strength 5/5 in all extremities. Sensory grossly intact. Cerebellar exam normal. Normal gait. Vital Signs: 16:21 BP 162 / 82; Pulse 62; Resp 16; Temp 98; Pulse Ox 100% ; ko1 17:30 BP 152 / 79; Pulse 64; Resp 16; Temp 98.3; Pulse Ox 100% on R/A; me1 MDM: 16:19 Patient medically screened. rn 17:39 Differential diagnosis: Tendinitis, overuse injury, radiculopathy, carpal tunnel rn syndrome. Data reviewed: vital signs, nurses notes, radiologic studies, CT scan, and as a result, I will discharge patient. Counseling: I had a detailed discussion with the patient and/or guardian regarding the historical points, exam findings, and any diagnostic results supporting the discharge/admit diagnosis, radiology results, the need for outpatient follow up, to return to the emergency department if symptoms worsen or persist or if there are any questions or concerns that arise at home. Special discussion: I discussed with the patient/guardian in detail that at this point there is no indication for admission to the hospital. It is understood, however, that if the symptoms persist or worsen the patient needs to return immediately for re-evaluation. 17:39 ED course: CT C-spine without acute findings. Patient with a mixed picture of overuse rn and tendinitis. Recommend rest. Will send home with gabapentin and return precautions.. 10/16 16:30 Order name: CT C Spine; Complete Time: 17:31 rn Administered Medications: 16:57 Drug: Gabapentin PO 300 mg PO once Route: PO; ld1 17:46 Follow up: Response: No adverse reaction as6 16:57 Drug: Ketorolac IM 15 mg IM once Route: IM; Site: left deltoid; ld1 17:46 Follow up: Response: No adverse reaction as6 Disposition Summary: 04/22/24 17:40 Discharge Ordered Notes: Location: Home rn Problem: an ongoing problem rn Symptoms: have improved rn Condition: Stable rn Diagnosis - Pain in right arm rn Followup: rn - With: Private Physician - When: As needed - Reason: Recheck today's complaints, Re-evaluation by your physician Discharge Instructions: - Discharge Summary Sheet rn - Tendinitis rn - Cervical Radiculopathy, [id number] rn Forms: - Medication Reconciliation Form rn - 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
--- NOTE | 2023-10-17 17:41 | ER ---
Nurse's Notes [facility] Name: Zeny Alcazar Age: 53 yrs Sex: Female : 1970 Arrival Date: 10/17/2023 Time: 16:15 Bed Treatment Private MD: Diagnosis: Pain in right arm Presentation: 10/16 16:21 Chief complaint: Patient states: right wrist, arm, and up into neck, its been going on ko1 for months. Coronavirus screen: At this time, the client does not indicate any symptoms associated with coronavirus-19. Ebola Screen: No symptoms or risks identified at this time. Initial Sepsis Screen: Does the patient meet any 2 criteria? No. Patient's initial sepsis screen is negative. Does the patient have a suspected source of infection? No. Patient's initial sepsis screen is negative. Risk Assessment: Do you want to hurt yourself or someone else? Patient reports no desire to harm self or others. Onset of symptoms is unknown. 16:21 Method Of Arrival: Ambulatory ko1 16:21 Acuity: MICHAEL 4 ko1 Triage Assessment: 16:24 General: Appears in no apparent distress. Behavior is calm, cooperative, appropriate ko1 for age. Pain: Complains of pain in right arm. Historical: - Allergies: 16:24 No Known Allergies; ko1 - Home Meds: 16:24 None [Active]; ko1 - PMHx: 16:24 Asthma; ko1 - PSHx: 16:24 None; ko1 - Immunization history:: Adult Immunizations up to date. - Infectious Disease History:: Denies. - Social history:: Smoking status: Patient denies any tobacco usage or history of. - Family history:: not pertinent. - Hospitalizations: : No recent hospitalization is reported. Screenin:46 [facility] ED Fall Risk Assessment (Adult) History of falling in the last 3 months, ld1 including since admission No falls in past 3 months (0 pts) Confusion or Disorientation No (0 pts) Intoxicated or Sedated No (0 pts) Impaired Gait No (0 pts) Mobility Assist Device Used No (0 pt) Altered Elimination No (0 pt) Score/Fall Risk Level 0 - 2 = Low Risk Maintained a safe environment, Provided non-skid footwear, Hourly rounding (assess needs \T\ fall precautionary measures) done. Abuse screen: Denies threats or abuse. Nutritional screening: No deficits noted. Tuberculosis screening: No symptoms or risk factors identified. Assessment: 16:46 General: Appears uncomfortable, well groomed, well developed, well nourished, Behavior ld1 is calm, cooperative, appropriate for age, Reports right wrist, arm, and up into neck, its been going on for months. Pain: Complains of pain in right arm Pain radiates to right neck Quality of pain is described as burning, shooting, Pain began months Is continuous. Neuro: Level of Consciousness is awake, alert, obeys commands, Oriented to person, place, time, situation, Appropriate for age. Cardiovascular: Capillary refill < 3 seconds Patient's skin is warm and dry. Respiratory: Airway is patent Respiratory effort is even, unlabored, Respiratory pattern is regular, symmetrical. GI: No signs and/or symptoms were reported involving the gastrointestinal system. : No signs and/or symptoms were reported regarding the genitourinary system. EENT: No signs and/or symptoms were reported regarding the EENT system. Derm: Skin is intact, is healthy with good turgor, Skin is pink, warm \T\ dry. Musculoskeletal: Reports. Musculoskeletal: Reports pain in right arm since a few months. Vital Signs: 16:21 BP 162 / 82; Pulse 62; Resp 16; Temp 98; Pulse Ox 100% ; ko1 17:30 BP 152 / 79; Pulse 64; Resp 16; Temp 98.3; Pulse Ox 100% on R/A; me1 ED Course: 16:19 Patient arrived in ED. mg5 16:19 Yao Carlos MD is Attending Physician. rn 16:24 Triage completed. ko1 16:24 Arm band placed on right wrist. Patient placed in waiting room, Patient notified of ko1 wait time. 16:40 Gisele Nguyen, EL is Primary Nurse. ld1 16:46 Patient has correct armband on for positive identification. Bed in low position. Call ld1 light in reach. Side rails up X 1. Provided Education on: POC. Verbalized understanding.. 16:46 No provider procedures requiring assistance completed. Patient did not have IV access ld1 during this emergency room visit. 16:52 CT C Spine In Process Unspecified. EDMS Administered Medications: 16:57 Drug: Gabapentin PO 300 mg PO once Route: PO; ld1 17:46 Follow up: Response: No adverse reaction as6 16:57 Drug: Ketorolac IM 15 mg IM once Route: IM; Site: left deltoid; ld1 17:46 Follow up: Response: No adverse reaction as6 Medication: 16:46 VIS not applicable for this client. ld1 Outcome: 17:40 Discharge ordered by . rn 17:47 Discharged to home ambulatory, as6 17:47 Condition: stable 17:47 Discharge instructions given to patient, Instructed on discharge instructions, follow up and referral plans. medication usage, Demonstrated understanding of instructions, follow-up care, medications, Prescriptions given X 1, 17:47 Patient left the ED. as6 Signatures: Dispatcher [employer] EDMS Yao Carlos MD MD rn Sims, Lauren RN EL ld1 Amilcar Schreiber RN RN as6 Hallie Echevarria RN RN ko1 Ibeth Babb RN RN id1 [place] mg5 Corrections: (The following items were deleted from the chart) 16:46 16:21 Chief complaint: Patient states: right wrist, arm, and up into neck, its been ld1 going on for months ko1
[2023-10-17 17:54] VITALS: BP 162/82; TEMP 98; O2SAT 100
== END 2023-10-17 17:47 | disposition home or self-care (01) ==
LOC: ER 16:15
DX: M79.601 Pain in right arm (principal)
CPT/HCPCS: 72125; 96372; 99284

== ENCOUNTER 2024-08-04 21:32 | Observation (INO) | payer BC ==
[2024-08-04] MEDS ORDERED: NA CHLORIDE 0.9% 1,000 ML ONE (21:45)
[2024-08-04] MEDS ORDERED: METHYLPREDNISOLONE 125 MG INJ ONE (22:25)
[2024-08-04] MEDS ORDERED: LEVALBUTEROL 1.25 MG/3 ML NEB ONE ×2 (22:25→23:13)
[2024-08-04] MEDS ORDERED: IPRATROPIUM BROM 0.5MG/2.5ML ONE (22:25)
[2024-08-04] MEDS ORDERED: levoFLOXacin 250 MG TAB ONE (22:26)
[2024-08-04] MEDS ORDERED: Magnesium Sulfate 2gm IVPB 2 G/50 ML BAG IV ONE (22:26)
[2024-08-04] MEDS ORDERED: FAMOTIDINE 20 MG/2 ML VIAL IV ONE (22:26)
[2024-08-04] MEDS ORDERED: predniSONE 20 MG TAB ONE (22:26)
--- NOTE | 2024-08-04 22:32 | EDPHYS ---
Physician Documentation [facility] Name: Zeny Alcazar Age: 54 yrs Sex: Female : 1970 Arrival Date: 08/04/2024 Time: 21:32 Bed 6 Private MD: ED Physician Sean Chavez HPI: 08/04 21:57 This 54 yrs old Female presents to ER via Ambulatory with complaints of polo Breathing Difficulty. 21:57 The patient has shortness of breath at rest, with light activity. Onset: The polo symptoms/episode began/occurred 3 day(s) ago. Duration: The symptoms are continuous, and are steadily getting worse. The patient's shortness of breath is aggravated by coughing, talking, walking. Associated signs and symptoms: Pertinent positives: dizziness. Severity of symptoms: At their worst the symptoms were moderate severe in the emergency department the symptoms are unchanged. The patient has experienced similar episodes in the past, multiple times. Historical: - Allergies: 21:38 No Known Allergies; ha1 - Home Meds: 21:38 Tetracycline Oral [Active]; ha1 - PMHx: 21:38 Asthma; ha1 - PSHx: 21:38 None; ha1 - Immunization history:: Adult Immunizations not up to date. - Infectious Disease History:: Denies. - Social history:: Smoking status: Patient denies any tobacco usage or history of. - Family history:: not pertinent. ROS: 21:57 Constitutional: Negative for fever, chills, and weight loss, Eyes: Negative for injury, polo pain, redness, and discharge, ENT: Negative for injury, pain, and discharge, Neck: Negative for injury, pain, and swelling, Cardiovascular: Negative for chest pain, palpitations, and edema, Abdomen/GI: Negative for abdominal pain, nausea, vomiting, diarrhea, and constipation, Back: Negative for injury and pain, : Negative for injury, bleeding, discharge, and swelling, MS/Extremity: Negative for injury and deformity, Skin: Negative for injury, rash, and discoloration, Neuro: Negative for headache, weakness, numbness, tingling, and seizure, Psych: Negative for depression, anxiety, suicide ideation, homicidal ideation, and hallucinations, Allergy/Immunology: Negative for hives, rash, and allergies, Endocrine: Negative for neck swelling, polydipsia, polyuria, polyphagia, and marked weight changes, Hematologic/Lymphatic: Negative for swollen nodes, abnormal bleeding, and unusual bruising, 21:57 Respiratory: Positive for cough, shortness of breath, wheezing, inspiratory, expiratory, Exam: 21:57 Constitutional: This is a well developed, well nourished patient who is awake, alert, polo and in no acute distress. Head/Face: Normocephalic, atraumatic. Eyes: Pupils equal round and reactive to light, extra-ocular motions intact. Lids and lashes normal. Conjunctiva and sclera are non-icteric and not injected. Cornea within normal limits. Periorbital areas with no swelling, redness, or edema. ENT: Nares patent. No nasal discharge, no septal abnormalities noted. Tympanic membranes are normal and external auditory canals are clear. Oropharynx with no redness, swelling, or masses, exudates, or evidence of obstruction, uvula midline. Mucous membranes moist. Neck: Trachea midline, no thyromegaly or masses palpated, and no cervical lymphadenopathy. Supple, full range of motion without nuchal rigidity, or vertebral point tenderness. No Meningismus. Chest/axilla: Normal chest wall appearance and motion. Nontender with no deformity. No lesions are appreciated. Cardiovascular: Regular rate and rhythm with a normal S1 and S2. No gallops, murmurs, or rubs. Normal PMI, no JVD. No pulse deficits. Abdomen/GI: Soft, non-tender, with normal bowel sounds. No distension or tympany. No guarding or rebound. No evidence of tenderness throughout. Back: No spinal tenderness. No costovertebral tenderness. Full range of motion. Skin: Warm, dry with normal turgor. Normal color with no rashes, no lesions, and no evidence of cellulitis. MS/ Extremity: Pulses equal, no cyanosis. Neurovascular intact. Full, normal range of motion., bilateral aka Neuro: Awake and alert, GCS 15, oriented to person, place, time, and situation. Cranial nerves II-XII grossly intact. Motor strength 5/5 in all extremities. Sensory grossly intact. Cerebellar exam normal. Normal gait. Psych: Awake, alert, with orientation to person, place and time. Behavior, mood, and affect are within normal limits. 21:57 ECG was reviewed by the Attending Physician. 21:57 Respiratory: mild respiratory distress is noted, Respirations: labored breathing, that is moderate, Breath sounds: bronchial sounds, that are mild, are scattered, decreased breath sounds, that are moderate, are located in both bases, rhonchi, that are mild, are scattered, stridor, is not appreciated, + upper airway congestion. wheezing: inspiratory expiratory is heard diffusely, Respiratory rate: 24 21:57 Musculoskeletal/extremity: DVT Exam: No signs of deep vein thrombosis. no pain, no swelling, no tenderness, negative Homans' sign noted on exam, no appreciated bluish discoloration, no erythema, no increased warmth, Vital Signs: 21:39 BP 150 / 88; Pulse 76; Resp 24 S; Temp 97.9(T); Pulse Ox 97% on R/A; Weight 68.04 kg; ha1 Height 5 ft. 0 in. ; 22:30 BP 120 / 73; Pulse 76; Resp 18; Pulse Ox 100% ; Pain 0/10; br2 23:30 BP 150 / 72; Pulse 90; Resp 18; Pulse Ox 99% ; Pain 0/10; br2 08/05 00:30 BP 139 / 67; Pulse 97; Resp 18; Pulse Ox 97% ; Pain 0/10; br2 08/04 21:39 Body Mass Index 29.29 (68.04 kg, 152.4 cm) ha1 22:30 Pain Scale: Adult br2 23:30 Pain Scale: Adult br2 08/05 00:30 Pain Scale: Adult br2 MDM: 08/04 21:38 Medical Screening Exam initiated polo 22:01 Differential diagnosis: Anemia Anxiety Reaction asthma, Bronchitis CHF exacerbation, polo Chronic Obstructive Pulmonary Disease pneumonia, Pneumothorax Psychogenic reactive airway disease, Sepsis Unstable Angina. Antibiotic administration: The patient is discharged and will get outpatient antibiotics. Immunization status: Influenza vaccine: within last 5 years. Data reviewed: vital signs, nurses notes, lab test result(s), EKG, radiologic studies, plain films. Consideration of Admission/Observation Patient was admitted/placed on observation. Escalation of care including admission/observation considered. I considered the following discharge prescriptions or medication management in the emergency department Medications were administered in the Emergency Department. See MAR. Independent interpretation of the following test(s) in the Emergency Department EKG: See my EKG interpretation above. Test considered but Not performed: CT: NO CT CHEST. Historians other than the Patient: Spouse/Significant Other: WELL INFORMED. Care significantly affected by the following chronic conditions: ASTHMA. Counseling: I had a detailed discussion with the patient and/or guardian regarding the historical points, exam findings, and any diagnostic results supporting the discharge/admit diagnosis, lab results, radiology results, the need for further work-up and treatment in the hospital. 08/04 21:40 Order name: Basic Metabolic Panel; Complete Time: 00:11 [facility] 08/04 21:40 Order name: CBC with Diff; Complete Time: 00:11 [facility] 08/04 21:40 Order name: LFT's; Complete Time: 00:11 [facility] 08/04 21:40 Order name: Magnesium; Complete Time: 00:11 [facility] 08/04 21:40 Order name: NT PRO-BNP; Complete Time: 00:11 [facility] 08/04 21:40 Order name: PT-INR; Complete Time: 00:11 [facility] 08/04 21:40 Order name: Troponin HS; Complete Time: 00:11 [facility] 08/04 21:40 Order name: Flu; Complete Time: 22:59 [facility] 08/04 21:40 Order name: SARS RAPID; Complete Time: 22:59 [facility] 08/04 23:28 Order name: Urinalysis w/ reflexes EDMS 08/04 23:28 Order name: CBC with Automated Diff EDMS 08/04 23:28 Order name: CBC with Automated Diff EDMS 02 23:28 Order name: Comprehensive Metabolic Panel EDMS 08/04 23:28 Order name: Comprehensive Metabolic Panel EDPA 08/04 21:40 Order name: XRAY Chest (1 view); Complete Time: 22:59 [facility] 08/04 21:40 Order name: Cardiac monitoring; Complete Time: 21:48 [facility] 08/04 21:40 Order name: EKG - Nurse/Tech; Complete Time: 21:48 [facility] 08/04 21:40 Order name: IV Saline Lock; Complete Time: 21:49 [facility] 08/04 21:40 Order name: Labs collected and sent; Complete Time: 23:21 [facility] 08/04 21:40 Order name: O2 Per Protocol; Complete Time: 21:49 [facility] 08/04 21:40 Order name: O2 Sat Monitoring; Complete Time: 21:49 [facility] EC:57 Rate is 74 beats/min. Rhythm is regular. QRS [place] is Normal. VT interval is normal. QRS polo interval is normal. QT interval is normal. No Q waves. T waves are Normal. No ST changes noted. Clinical impression: NSR w/ Non-specific ST/T Changes and No evidence of ischemia. Interpreted by me. Reviewed by me. Administered Medications: 22:48 Drug: Ipratropium Inhalation Aerosol 0.5 mg Inhalation once Route: Inhalation; br2 23:00 Follow up: Response: No adverse reaction br2 22:48 Drug: Magnesium Sulfate IVPB 2 grams IVPB once over 2 hrs Route: IVPB; Infused Over: 2 br2 hrs; Site: right antecubital; 08/05 00:48 Follow up: Response: No adverse reaction; IV Status: Completed infusion; IV Intake: br2 100ml 08/04 22:48 Drug: LevOfloxacin PO 500 mg PO once Route: PO; br2 23:30 Follow up: Response: No adverse reaction br2 22:48 Drug: Famotidine IVP 20 mg IVP once; dilute with 10 mL 0.9% NaCl; give over 2 minutes br2 Route: IVP; Site: left hand; 23:30 Follow up: Response: No adverse reaction br2 22:49 Drug: NS 0.9% IV 1000 ml IV at 1000 ml once; to be given as a bolus over 60 minutes br2 Route: IV; Rate: 1000 ml; Site: left hand; 08/05 00:30 Follow up: IV Status: Completed infusion; IV Intake: 1000ml br2 08/04 22:49 Drug: MethylPrednisoLONE IVP 125 mg IVP once Route: IVP; Site: left hand; br2 23:30 Follow up: Response: No adverse reaction br2 22:49 Drug: predniSONE PO 60 mg PO once Route: PO; br2 23:30 Follow up: Response: No adverse reaction br2 22:49 Drug: Levalbuterol Inhalation 3.75 mg Inhalation once Route: Inhalation; br2 23:30 Follow up: Response: No adverse reaction br2 23:13 Drug: Levalbuterol Inhalation 2.5 mg Inhalation once Route: Inhalation; cp4 08/05 00:15 Follow up: Response: No adverse reaction br2 Disposition Summary: 08/04/24 22:32 Hospitalization Ordered Notes: Hospitalization Status: Observation polo Provider: Dylan Gallegos cha Location: Telemetry/MedSurg (observation) polo Condition: Fair polo Problem: new polo Symptoms: have improved polo Bed/Room Type: Standard [facility] Room Assignment: 225(08/04/24 23:50) kl Diagnosis - Moderate persistent asthma with (acute) exacerbation polo - Hypoxemia polo - Dyspnea polo Discharge Instructions: - Discharge Summary Sheet sp Forms: - Medication Reconciliation Form polo - SBAR form polo - Leadership Thank You Letter polo - Family Work Release sp Signatures: Dispatcher [employer] EDMS Jessy Siegel, RN RN Sean Breen MD MD cha Ayala, Heidy RN RN Shannen Mendes cp4 Antonella Baird RN RN br2 Corrections: (The following items were deleted from the chart) 08/04 21:41 21:41 BASIC METABOLIC PANEL+C.LAB.BRZ ordered. EDMS EDMS 21:41 21:41 CBC+H.LAB.BRZ ordered. EDMS EDMS 21:41 21:41 HEPATIC FUNCTION+C.LAB.BRZ ordered. EDMS EDMS 21:41 21:41 MAGNESIUM+C.LAB.BRZ ordered. EDMS EDMS 21:41 21:41 PROBNP+C.LAB.BRZ ordered. EDMS EDMS 21:41 21:41 PROTIME (+INR)+COAG.LAB.BRZ ordered. EDMS EDMS 21:41 21:41 Troponin High Sensitivity+C.LAB.BRZ ordered. EDMS EDMS 21:41 21:41 Influenza Screen (A \T\ B)+BA.LAB.BRZ ordered. EDMS EDMS 21:41 21:41 SARS-COV-2 Antigen Rapid+I.LAB.BRZ ordered. EDMS EDMS 21:41 21:41 Chest Single View+RAD.RAD.BRZ ordered. EDMS EDMS 23:50 22:[address]
--- NOTE | 2024-08-04 22:32 | ER ---
Nurse's Notes [facility] Name: Zeny Alcazar Age: 54 yrs Sex: Female : 1970 Arrival Date: 08/04/2024 Time: 21:32 Bed 6 Private MD: Diagnosis: Moderate persistent asthma with (acute) exacerbation;Hypoxemia;Dyspnea Presentation: 08/04 21:39 Chief complaint: Patient states: SHORTNESS OF BREATHS FOR OFF AND ON FOR OVER A MONTH. ha1 DIFFICULTY BREATHING. 21:39 Coronavirus screen: Vaccine status: Patient reports being unvaccinated. Client denies ha1 travel out of the [place] in the last 14 days. Ebola Screen: No symptoms or risks identified at this time. Initial Sepsis Screen: Does the patient meet any 2 criteria? No. Patient's initial sepsis screen is negative. Does the patient have a suspected source of infection? No. Patient's initial sepsis screen is negative. Risk Assessment: Do you want to hurt yourself or someone else? Patient reports no desire to harm self or others. Onset of symptoms was August 04, 2024. 21:39 Method Of Arrival: Ambulatory ha1 21:39 Acuity: MICHAEL 2 ha1 Triage Assessment: 21:39 General: Appears uncomfortable, Behavior is cooperative. Neuro: Level of Consciousness ha1 is awake, alert, obeys commands, Oriented to person, place, time, situation. Cardiovascular: Reports shortness of breath, Patient's skin is warm and dry. Respiratory: Reports shortness of breath at rest on exertion Onset: The symptoms/episode began/occurred gradually, the patient has moderate shortness of breath. GI: Abdomen is round non-distended. : No signs and/or symptoms were reported regarding the genitourinary system. Derm: Skin is pink, warm \T\ dry. Musculoskeletal: No signs and/or symptoms reported regarding the musculoskeletal system. Circulation, motion, and sensation intact. Range of motion:. Historical: - Allergies: 21:38 No Known Allergies; ha1 - Home Meds: 21:38 Tetracycline Oral [Active]; ha1 - PMHx: 21:38 Asthma; ha1 - PSHx: 21:38 None; ha1 - Immunization history:: Adult Immunizations not up to date. - Infectious Disease History:: Denies. - Social history:: Smoking status: Patient denies any tobacco usage or history of. - Family history:: not pertinent. Screenin:[facility] ED Fall Risk Assessment (Adult) History of falling in the last 3 months, br2 including since admission No falls in past 3 months (0 pts) Confusion or Disorientation No (0 pts) Intoxicated or Sedated No (0 pts) Impaired Gait No (0 pts) Mobility Assist Device Used No (0 pt) Altered Elimination No (0 pt) Score/Fall Risk Level 0 - 2 = Low Risk Oriented to surroundings. Abuse screen: Denies threats or abuse. Denies injuries from another. Nutritional screening: No deficits noted. Tuberculosis screening: No symptoms or risk factors identified. Assessment: 21:35 Reassessment: Patient and/or family updated on plan of care and expected duration. Pain br2 level reassessed. Patient is alert, oriented x 3, equal unlabored respirations, skin warm/dry/pink. Pain: Denies pain. Cardiovascular: Rhythm is sinus rhythm. Respiratory: Airway is patent Respiratory effort is even, unlabored, Breath sounds with wheezes bilaterally. in left posterior upper lobe, right posterior upper lobe, left posterior lower lobe, right posterior middle lobe and right posterior lower lobe. Vital Signs: 21:39 BP 150 / 88; Pulse 76; Resp 24 S; Temp 97.9(T); Pulse Ox 97% on R/A; Weight 68.04 kg; ha1 Height 5 ft. 0 in. ; 22:30 BP 120 / 73; Pulse 76; Resp 18; Pulse Ox 100% ; Pain 0/10; br2 23:30 BP 150 / 72; Pulse 90; Resp 18; Pulse Ox 99% ; Pain 0/10; br2 08/05 00:30 BP 139 / 67; Pulse 97; Resp 18; Pulse Ox 97% ; Pain 0/10; br2 08/04 21:39 Body Mass Index 29.29 (68.04 kg, 152.4 cm) ha1 22:30 Pain Scale: Adult br2 23:30 Pain Scale: Adult br2 08/05 00:30 Pain Scale: Adult br2 ED Course: 08/04 21:36 Patient arrived in ED. ra3 21:38 Sean Chavez MD is Attending Physician. [facility] 21:45 Patient has correct armband on for positive identification. Placed in gown. Bed in low br2 position. Call light in reach. Side rails up X 1. Provided Education on: PLAN OF CARE. 21:47 Triage completed. ha1 21:48 Antonella Baird RN is Primary Nurse. br2 21:48 SARS RAPID Sent. br2 21:48 Flu Sent. br2 21:48 EKG done, by ED staff, reviewed by Sean Chavez MD. sa1 22:30 Inserted saline lock: 22 gauge in right antecubital area, using aseptic technique. br2 22:31 Dylan Gallegos MD is Hospitalizing Provider. polo 22:41 XRAY Chest (1 view) In Process Unspecified. EDMS 08/05 01:00 No provider procedures requiring assistance completed. Patient admitted, IV remains in br2 place. Administered Medications: 08/04 22:48 Drug: Ipratropium Inhalation Aerosol 0.5 mg Inhalation once Route: Inhalation; br2 23:00 Follow up: Response: No adverse reaction br2 22:48 Drug: Magnesium Sulfate IVPB 2 grams IVPB once over 2 hrs Route: IVPB; Infused Over: 2 br2 hrs; Site: right antecubital; 08/05 00:48 Follow up: Response: No adverse reaction; IV Status: Completed infusion; IV Intake: br2 100ml 08/04 22:48 Drug: LevOfloxacin PO 500 mg PO once Route: PO; br2 23:30 Follow up: Response: No adverse reaction br2 22:48 Drug: Famotidine IVP 20 mg IVP once; dilute with 10 mL 0.9% NaCl; give over 2 minutes br2 Route: IVP; Site: left hand; 23:30 Follow up: Response: No adverse reaction br2 22:49 Drug: NS 0.9% IV 1000 ml IV at 1000 ml once; to be given as a bolus over 60 minutes br2 Route: IV; Rate: 1000 ml; Site: left hand; 08/05 00:30 Follow up: IV Status: Completed infusion; IV Intake: 1000ml br2 08/04 22:49 Drug: MethylPrednisoLONE IVP 125 mg IVP once Route: IVP; Site: left hand; br2 23:30 Follow up: Response: No adverse reaction br2 22:49 Drug: predniSONE PO 60 mg PO once Route: PO; br2 23:30 Follow up: Response: No adverse reaction br2 22:49 Drug: Levalbuterol Inhalation 3.75 mg Inhalation once Route: Inhalation; br2 23:30 Follow up: Response: No adverse reaction br2 23:13 Drug: Levalbuterol Inhalation 2.5 mg Inhalation once Route: Inhalation; cp4 08/05 00:15 Follow up: Response: No adverse reaction br2 Medication: 08/04 21:35 VIS not applicable for this client. br2 Intake: 08/05 00:30 IV: 1000ml; Total: 1000ml. br2 00:48 IV: 100ml; Total: 1100ml. br2 Outcome: 08/04 22:32 Decision to Hospitalize by Provider. polo 08/05 01:00 Admitted to Med/surg accompanied by tech, via stretcher, room 225, br2 01:09 Patient left the ED. br2 Signatures: Dispatcher [employer] Sean Davidson MD MD cha Ayala, Heidy, RN RN 1 Shannen Armstrong cp4 Marti Salazar ra3 Sultan Cleve 1 Antonella Baird RN RN br2
--- NOTE | 2024-08-04 22:43 | RAD REPORT ---
EXAM: Chest Single View HISTORY: Cough;Dyspnea COMPARISON: None. FINDINGS: LUNGS/PLEURA: The lungs are clear. No pleural effusions or pneumothorax. No pulmonary edema. MEDIASTINUM: The mediastinal silhouette is within normal limits. CARDIAC: The cardiac silhouette is within normal limits. UPPER ABDOMEN: No significant abnormality. BONES: No acute abnormality. LINES/TUBES/OTHER: N/A IMPRESSION: No evidence of acute cardiopulmonary disease.
[2024-08-04 22:50] LABS: SARS-CoV-2 Antigen CONTROL BLUE LINE VIS/BG OK; SARS-CoV-2 Antigen Rapid Res Negative (Negative)
[2024-08-04 23:12] LABS: Absolute Eosinophils 0.1 K/uL (0-0.5); Absolute Monocytes 0.5 K/uL (0.1-1.3); Absolute Neutrophil 9.1 K/uL (1.8-8.0); Basophils % 0.1 % (0-1.3); Eosinophils % 1.3 % (0-4.4); Hematocrit 39.1 % (36.0-45.0); Hemoglobin 13.3 g/dL (12.0-15.0); Lymphocytes % 9.4 % (15.3-44.8); MCH 31.5 pg (27.0-35.0); MCHC 33.9 g/dL (32.0-36.0); MPV 9.9 fL (7.6-11.3); Monocytes % 4.6 % (3.3-12.3); Neutrophils % 84.6 % (41.7-73.7); Platelets 232 thou/uL (152-406); Red Cell Distribution Width 12.6 % (12.1-15.2)
[2024-08-04 23:14] LABS: PT Prothrombin Time 11.3 SECONDS (9.4-12.5); Protime INR 1.08
[2024-08-04] MEDS ORDERED: ONDANSETRON 4 MG/2 ML VIAL IV PRN (23:22)
[2024-08-04] MEDS ORDERED: ACETAMINOPHEN 325 MG TABLET PO PRN (23:22)
--- NOTE | 2024-08-04 23:22 | P.HP ---
Certification for Inpatient Patient admitted to: Inpatient With expected LOS: >2 Midnights Practitioner: I am a practitioner with admitting privileges, knowledge of patient current condition, hospital course, and medical plan of care. Services: Services provided to patient in accordance with Admission requirements found in Title 42 Section 412.3 of the Code of Federal Regulations Patient History Date of Service: 08/05/24 Reason for admission: SOB History of Present Illness: 54 yrs old Female with past medical history of asthma brought to ER with complaints of ch shortness of breath which has been going on for the last 3 days and has been progressively worsening. Denies any fever or chills. Denies any chest pain. Associated with cough with mucoid expectoration. No nausea vomiting or diarrhea. No sick contacts. Patient has similar symptoms of asthma exacerbation previously. Patient was assessed in the ER and was admitted for further management of asthma exacerbation Allergies No Known Allergies Allergy (Unverified 01/02/18 00:27) Home medications list reviewed: Yes - Past Medical/Surgical History Past Medical History: Reviewed- Non-Contributory -: Asthma Past Surgical History: Reviewed- Non-Contributory - Family History Family History: Reviewed- Non-Contributory - Social History Smoking Status: Never smoker Review of Systems 10-point ROS is otherwise unremarkable Physical Examination - Vital Signs Temperature: 97.9 F Blood Pressure: 150/88 Pulse: 76 Respirations: 18 Pulse Ox (%): 94 - Physical Exam General: Alert, Oriented x3, Mild distress HEENT: Atraumatic, Normocephalic Neck: Supple, 2+ carotid pulse no bruit Respiratory: Diminished, Expiratory wheezes Cardiovascular: No edema, Regular rate/rhythm, Normal S1 S2 Capillary refill: <2 Seconds Gastrointestinal: Soft and benign, W/out hepatosplenomegaly Musculoskeletal: No clubbing, No swelling Integumentary: No rashes Neurological: Normal strength at 5/5 x4 extr, Cranial nerves 3-12 intact, Normal reflexes 2+, Normal affect Lymphatics: No axilla or inguinal lymphadenopathy - Studies Laboratory Data (last 24 hrs) 08/04/24 08/04/24 22:46 22:46 WBC 10.80 Hgb 13.3 Hct 39.1 Plt Count 232 PT 11.3 INR 1.08 Microbiology Data (last 24 hrs): 08/04/24 21:46 Nasopharnyx Influenza Type A Antigen Screen - Final 08/04/24 21:46 Nasopharnyx Influenza Type B Antigen Screen - Final Assessment and Plan - Plan Asthma exacerbation Monitor closely on telemetry Started on bronchodilators Oxygen supplementation Steroids added ABG findings noted Chest x-ray findings noted Antitussives Flu and COVID-negative Acute hypoxic respiratory failure Oxygen supplementation Will wean off of oxygen GI/DVT prophylaxis Advanced directive full code Discharge Plan: Home Plan to discharge in: 48 Hours - Advance Directives Does patient have a Living Will: No Does patient have a Durable POA for Healthcare: No - Code Status/Comfort Care Code Status: Full Code Time Spent Managing Pts Care (In Minutes): 48
[2024-08-04] MEDS ORDERED: HYDROCODONE/APAP 5/325 MG TAB PO PRN (23:26)
[2024-08-04] MEDS ORDERED: GUAIFENESIN/DM 5 ML UCUP PO PRN (23:26)
[2024-08-04 23:31] LABS: ALT/SGPT 24 U/L (13-56); AST/SGOT 21 U/L (15-37); Albumin 3.8 g/dL (3.4-5.0); Alkaline Phosphatase 77 U/L (45-117); Anion Gap 7.8 mEq/L (5.0-15.0); BUN Blood Urea Nitrogen 13 mg/dL (7-18); Bicarbonate 26 mEq/L (21-32); Bilirubin Total 0.4 mg/dL (0.2-1.0); Globulin 3.8 g/dL (2.3-3.5); Glomerular Filtration Rate 100 ml/min (=/>90); Glucose Level 118 mg/dL (74-106); Magnesium 2.2 mg/dL (1.6-2.4); NT PRO-BNP 61 pg/mL (<125); Potassium 3.8 mEq/L (3.5-5.1); Protein, Total 7.6 g/dL (6.4-8.2); Sodium Level 138 mEq/L (136-145); Troponin High Sensitivity 4.8 pg/mL (<58.9)
[2024-08-04 23:34] LABS: Bilirubin Direct < 0.2 mg/dL (0-0.2); Bilirubin Indirect, Calculated 0.2 mg/dL (0.2-0.8)
[2024-08-05] MEDS: IPRATROPIUM BROM 0.5MG/2.5ML NEB SCH (01:00)
[2024-08-05] MEDS: ALBUTEROL 2.5 MG/3 ML NEB SOL NEB SCH (01:00)
[2024-08-05 01:21] VITALS: BMI 31.1
[2024-08-05] MEDS ORDERED: ALBUTEROL 2.5 MG/3 ML NEB SOL NEB PRN ×2 (05:00→09:05)
[2024-08-05 05:58] LABS: Absolute Lymphocytes (CBC) 0.4 K/uL (0.7-4.9); Absolute Monocytes 0.1 K/uL (0.1-1.3); Absolute Neutrophil 7.1 K/uL (1.8-8.0); Basophils % 0.1 % (0-1.3); Hematocrit 35.9 % (36.0-45.0); Hemoglobin 12.6 g/dL (12.0-15.0); Lymphocytes % 5.6 % (15.3-44.8); MCH 32.1 pg (27.0-35.0); MCV 91.7 fL (80-100); MPV 9.8 fL (7.6-11.3); Monocytes % 1.2 % (3.3-12.3); Neutrophils % 93.1 % (41.7-73.7); Platelets 210 thou/uL (152-406); RBC Red Blood Cell Count 3.91 M/uL (3.86-4.86); Red Cell Distribution Width 12.7 % (12.1-15.2)
[2024-08-05 06:09] LABS: Albumin 3.6 g/dL (3.4-5.0); Anion Gap 11.3 mEq/L (5.0-15.0); Bilirubin Total 0.3 mg/dL (0.2-1.0); Globulin 3.7 g/dL (2.3-3.5); Potassium 3.3 mEq/L (3.5-5.1); Protein, Total 7.3 g/dL (6.4-8.2)
[2024-08-05] MEDS: METHYLPREDNISOLONE 125 MG INJ IV SCH (06:47)
[2024-08-05] MEDS ORDERED: IPRATROPIUM BROM 0.5MG/2.5ML NEB PRN (08:05)
[2024-08-05 08:33] LABS: Urine Bilirubin NEGATIVE (Negative); Urine Blood Negative (Negative); Urine Clarity Clear (Clear); Urine Color Colorless (Yellow); Urine Glucose 2+ (Negative); Urine Ketones NEGATIVE (Negative); Urine Microscopic Reflex YN NO UMIC; Urine Nitrite NEGATIVE (Negative); Urine Protein NEGATIVE (Negative); Urine Urobilinogen Normal (Normal)
[2024-08-05 08:41] LABS: Blood Morphology Comment NOT SEEN (NOT SEEN); Platelet Estimate ADEQ; White Blood Cell Scan OK (OK)
[2024-08-05] MEDS: ENOXAPARIN 40 MG/0.4 ML SQ SCH (09:00)
[2024-08-05] MEDS: POTASSIUM 25 MEQ EFFERV TAB PO ONE (09:33)
[2024-08-05 11:20] VITALS: O2SAT 95
[2024-08-05 12:50] VITALS: BP 131/62; TEMP 97.7
--- NOTE | 2024-08-05 15:39 | P.DS ---
Admission Date: 08/04/24 Discharge Date: 08/05/24 Disposition: DC HOME/HOME HEALTH CARE Discharge Condition: GOOD Reason for Admission: SOB Brief History of Present Illness: 54 yrs old Female with past medical history of asthma brought to ER with complaints of ch shortness of breath which has been going on for the last 3 days and has been progressively worsening. Denies any fever or chills. Denies any chest pain. Associated with cough with mucoid expectoration. No nausea vomiting or diarrhea. No sick contacts. Patient has similar symptoms of asthma exacerbation previously. Patient was assessed in the ER and was admitted for further management of asthma exacerbation - Physical Exam General: Alert, Oriented x3, HEENT: Atraumatic, Normocephalic Neck: Supple, 2+ carotid pulse no bruit Respiratory: Diminished, Expiratory wheezes Cardiovascular: No edema, Regular rate/rhythm, Normal S1 S2 Capillary refill: <2 Seconds Gastrointestinal: Soft and benign, W/out hepatosplenomegaly Musculoskeletal: No clubbing, No swelling Integumentary: No rashes Neurological: Normal strength at 5/5 x4 extr, Cranial nerves 3-12 intact, Normal reflexes 2+, Normal affect Hospital Course: 54 yrs old Female with past medical history of asthma brought to ER with complaints of shortness of breath which has been going on for the last 3 days and has been progressively worsening. Denies any fever or chills. Denies any chest pain. Associated with cough with mucoid expectoration. No nausea vomiting or diarrhea. No sick contacts. Patient has similar symptoms of asthma exacerbation previously. She was admitted for asthma exacerbation, symptoms improved with steroids, albuterol, cough medications., Stable to discharge home, follow-up with pulmonary after the discharge Assessment Acute hypoxic respiratory failure secondary to asthma exacerbation discharged home on prednisone 20 mg daily for 11 days, albuterol nebulizer, albuterol inhaler, Symbicort, 1 puff twice daily, for 30 days, Doxycycline-take as directed until gone follow-up with PCP or pulmonary after discharge. Chest x-ray no cardiopulmonary disease Continue home medicines as previously prescribed GOAL: Clear understanding of disease process INSTRUCTIONS: Physician Discharge Instructions: -Follow-up with PCP in 1 to 2 weeks -Please call Dr. Romero at [phone] if any questions regarding hospital stay -Please call nursing station at [phone] if any nursing or medication questions -Return to the emergency room if symptoms worsen Diet: ADA, low sodium Activity: Fall precautions Vital Signs/Physical Exam: Temp Pulse Resp BP Pulse Ox 97.7 F 67 16 131/62 95 08/05/24 12:00 08/05/24 12:00 08/05/24 12:00 08/05/24 12:00 08/05/24 12:00 Laboratory Data at Discharge: WBC 7.60 thou/uL (4.3-10.9) 08/05/24 05:30 Hgb 12.6 g/dL (12.0-15.0) 08/05/24 05:30 Hct 35.9 % (36.0-45.0) L 08/05/24 05:30 Plt Count 210 thou/uL (152-406) 08/05/24 05:30 PT 11.3 SECONDS (9.4-12.5) 08/04/24 22:46 INR 1.08 08/04/24 22:46 Sodium 139 mEq/L (136-145) 08/05/24 05:30 Potassium 3.3 mEq/L (3.5-5.1) L D 08/05/24 05:30 BUN 9 mg/dL (7-18) 08/05/24 05:30 Creatinine 0.88 mg/dL (0.55-1.02) 08/05/24 05:30 Glucose 209 mg/dL (74-106) H 08/05/24 05:30 Magnesium 2.2 mg/dL (1.6-2.4) 08/04/24 22:46 Total Bilirubin 0.3 mg/dL (0.2-1.0) 08/05/24 05:30 AST 14 U/L (15-37) L 08/05/24 05:30 ALT 23 U/L (13-56) 08/05/24 05:30 Alkaline Phosphatase 70 U/L (45-117) 08/05/24 05:30 Home Medications: Albuterol Inhaler [Ventolin Inhaler*] 2 puff IH Q6H PRN #1 inh 08/05/24 Albuterol Neb [Proventil 0.083% Neb Soln] 2.5 mg NEB [id number] PRN #60 amp 08/05/24 Budesonide/Formoterol Fumarate [Symbicort 160-4.5 Mcg Inhaler] 1 puff IH BID #1 inh 08/05/24 Doxycycline Hyclate 50 mg PO DAILY 08/05/24 Nebulizer 1 each MC DAILY #1 ea 08/05/24 Nebulizer Accessories [Aeroneb Go] 1 each MC DAILY #1 ea 08/05/24 predniSONE [Deltasone] 20 mg PO DAILY #11 tab 08/05/24 New Medications: Nebulizer Accessories [Aeroneb Go] 1 each MC DAILY #1 ea Nebulizer 1 each MC DAILY #1 ea predniSONE [Deltasone] 20 mg PO DAILY #11 tab Albuterol Neb [Proventil 0.083% Neb Soln] 2.5 mg NEB [id number] PRN #60 amp PRN Reason: Shortness Of Breath Budesonide/Formoterol Fumarate [Symbicort 160-4.5 Mcg Inhaler] 1 puff IH BID #1 inh Albuterol Inhaler [Ventolin Inhaler*] 2 puff IH Q6H PRN #1 inh PRN Reason: Shortness Of Breath Physician Discharge Instructions: -DC IV and DC home -Follow-up with PCP in 1 to 2 weeks -Follow-up with Pulmonary in 1 to 2 weeks -Please call Dr. Romero at [phone] if any questions regarding hospital stay -Please call nursing station at [phone] if any nursing or medication questions -Return to the emergency room if symptoms worsen Diet: Regular Activity: Fall precautions Followup: NONE,NONE [Primary Care Provider] - Time spent managing pt's care (in minutes): 45
== END 2024-08-05 14:47 | disposition home health service (06) ==
LOC: ER 21:32 → INTOOBSV 23:22 → 2ND 23:22
PROVIDERS: ADMIT Family Medicine; ATTEND Hospitalist
DX: J45.901 Unspecified asthma with (acute) exacerbation (principal); J96.01 Acute respiratory failure with hypoxia; Z11.52 Encounter for screening for COVID-19
CPT/HCPCS: 85025 ×2; 80048; 36415; 83735; 85610; 80076; 81003; 84484; 80053; 83880; 87804 ×2; 71045; 94760 ×2; 87811; J7512; J3475; J7614 ×2; J7644; J2919 ×3; J7030; 93005; G0378; J1650

== ENCOUNTER 2025-03-15 21:07 | Emergency (ER) | payer BC ==
[2025-03-15] MEDS ORDERED: ALBUTEROL 2.5 MG/3 ML NEB SOL ONE (23:32)
[2025-03-15] MEDS ORDERED: METHYLPREDNISOLONE 125 MG INJ ONE (23:32)
[2025-03-15] MEDS ORDERED: IPRATROPIUM BROM 0.5MG/2.5ML ONE (23:32)
--- NOTE | 2025-03-16 00:25 | EDPHYS ---
Physician Documentation [facility] Name: Zeny Alcazar Age: 54 yrs Sex: Female : 1970 Arrival Date: 03/15/2025 Time: 21:07 Bed 12 Private MD: ED Physician Freddy Carnes HPI: 03/15 23:30 This 54 yrs old Female presents to ER via Ambulatory with complaints of Insect cp Bite, Arm Swelling, Breathing Difficulty. 23:30 The patient or guardian complains of a rash, itchy. The complaints affect the oh cp side of right forearm. Context: resulted from unknown cause. Onset: The symptoms/episode began/occurred 1 week(s) ago. 23:30 Treatment prior to arrival includes: over the counter medications, topical Benadryl cp cream. Associated signs and symptoms: Pertinent positives: shortness of breath, Pertinent negatives: erythema, fever, injury. Severity of symptoms: in the emergency department the symptoms are unchanged, despite home interventions. NET ARCHITECT: 23:49 Not tb4 Historical: - Allergies: 21:21 No Known Allergies; dd2 - PMHx: 21:21 Asthma; dd2 - PSHx: 21:21 None; dd2 - Immunization history:: Adult Immunizations up to date. - Infectious Disease History:: Denies. - Social history:: Smoking status: Patient denies any tobacco usage or history of. ROS: 23:35 Constitutional: Negative for body aches, chills, fever, poor PO intake, cp 23:35 Eyes: Negative for injury, pain, redness, and discharge, cp 23:35 Respiratory: Positive for shortness of breath, 23:35 Abdomen/GI: Negative for abdominal pain, vomiting, diarrhea, constipation, 23:35 Skin: Positive for rash, of the oh side of right forearm, 23:35 Neuro: Negative for altered mental status, dizziness, headache, 23:35 All other systems are negative, Exam: 23:40 Constitutional: The patient appears in no acute distress, alert, awake, cp non-diaphoretic, non-toxic, well developed, well nourished, 23:40 Head/Face: Normocephalic, atraumatic. cp 23:40 Eyes: Periorbital structures: appear normal, Conjunctiva: normal, no exudate, no injection, Sclera: no appreciated abnormality, Lids and lashes: appear normal, bilaterally, 23:40 ENT: External ear(s): are unremarkable, Nose: is normal, Mouth: Lips: moist, Oral mucosa: moist, Posterior pharynx: Airway: no evidence of obstruction, patent, 23:40 Chest/axilla: Inspection: normal, 23:40 Cardiovascular: Rate: normal, Rhythm: regular, 23:40 Respiratory: the patient does not display signs of respiratory distress, Respirations: normal, no use of accessory muscles, no retractions, labored breathing, is not present, Breath sounds: stridor, is not appreciated, wheezing: that is mild, is heard diffusely, 23:40 Abdomen/GI: Exam negative for discomfort, distension, guarding, Inspection: abdomen appears normal, 23:40 Skin: rash a moderate rash is noted, rash can be described as well-circumscribed area with central vesicular lesions, mild redness with no erythema, on the oh side of right forearm, Vital Signs: 21:16 BP 139 / 88; Pulse 69; Resp 17; Temp 98.3; Pulse Ox 99% on R/A; Weight 75.75 kg; Height dd2 5 ft. 0 in. ; Pain 6/10; 23:44 BP 137 / 79; Pulse 76; Resp 16; Pulse Ox 98% on R/A; Weight 75.75 kg; Height 5 ft. 0 tb4 in. ; Pain 0/10; 03/16 00:51 BP 128 / 75; Pulse 71; Resp 18 S; Pulse Ox 100% on R/A; ha1 03/15 23:44 Body Mass Index 32.61 (75.75 kg, 152.4 cm) tb4 03/15 21:16 Pain Scale: Adult dd2 23:44 Pain Scale: Adult tb4 MDM: 03/15 21:16 Medical Screening Exam initiated cp 03/16 00:00 Differential diagnosis: cellulitis, herpes zoster, contact dermatitis. cp 00:23 Data reviewed: vital signs, nurses notes, and as a result, I will discharge patient. cp 00:24 Counseling: I had a detailed discussion with the patient and/or guardian regarding the cp historical points, exam findings, and any diagnostic results supporting the discharge/admit diagnosis, to return to the emergency department if symptoms worsen or persist or if there are any questions or concerns that arise at home. 00:24 Response to treatment: the patient's symptoms have mildly improved after treatment, and cp as a result, I will discharge patient. Administered Medications: 03/15 23:43 Drug: MethylPREDNISolone Sodium Succinate IM 125 mg IM once Route: IM; Site: right tb4 ventrogluteal; 03/16 00:04 Follow up: Response: No adverse reaction tb4 03/15 23:43 Drug: Albuterol Inhalation 2.5 mg Inhalation once Route: Inhalation; tb4 03/16 00:04 Follow up: Response: No adverse reaction tb4 03/15 23:43 Drug: Ipratropium Inhalation Aerosol 0.5 mg Inhalation once Route: Inhalation; tb4 03/16 00:04 Follow up: Response: No adverse reaction tb4 Disposition Summary: 03/16/25 00:24 Discharge Ordered Notes: Location: Home cp Problem: new cp Symptoms: have improved cp Condition: Stable cp Diagnosis - Wheezing cp - Unspecified contact dermatitis, unspecified cause - right forearm cp Followup: cp - With: Private Physician - When: 2 - 3 days - Reason: Worsening of condition Discharge Instructions: - Discharge Summary Sheet cp - Contact Dermatitis cp - Eczema cp - Shortness of Breath, Adult, Dqus-mn-Madi cp Forms: - Medication Reconciliation Form cp - Antibiotic Education cp - Prescription Opioid Use cp - Patient Portal Instructions cp - Leadership Thank You Letter cp Prescriptions: - albuterol sulfate 90 mcg/actuation Inhalation HFA Aerosol Inhaler - inhale 1 puff INHALATION route every 4-6 hours As needed; 1 unit; Refills: 0, cp Product Selection Permitted - Prednisone 20 mg Oral Tablet - take 3 tablets ORAL route once daily for 5 days; 15 tablet; Refills: 0, Product cp Selection Permitted - Triamcinolone Acetonide 0.5 % Topical cream - apply 1 application TOPICAL route 2 times per day for 8-10 days; 30 gram tube; cp Refills: 0, Product Selection Permitted Addendum: 03/17/2025 07:30 Co-signature as Attending Physician, Freddy Carnes DO I agree with the assessment and t t7 plan of care. Signatures: Sean Rincon, [place] ROSAS PA-C, cp, RN RN dd2 Sera Hercules RN RN tb4 Freddy Carnes DO DO tt7
--- NOTE | 2025-03-16 00:25 | ER ---
Nurse's Notes [facility] Name: Zeny Alcazar Age: 54 yrs Sex: Female : 1970 Arrival Date: 03/15/2025 Time: 21:07 Bed 12 Private MD: Diagnosis: Wheezing;Unspecified contact dermatitis, unspecified cause-right forearm Presentation: 03/15 21:16 Chief complaint: Patient states: SHE DEVELOPED A SMALL BUMP ON RT FOREARM X 1 WEEK AGO, dd2 BEGAN ITCHING AND SWELLING. 3 DAYS AGO DEVELOPED 3 WATER FILLED BLISTERS AND THEY BURST. NOW BURNING, AND ITCHING. PT ALSO REPORTS DIFFICULTY BREATHING NAD DRAINAGE IN THROAT FOR 1 MONTH. Coronavirus screen: At this time, the client does not indicate any symptoms associated with coronavirus-19. Ebola Screen: No symptoms or risks identified at this time. Initial Sepsis Screen: Does the patient meet any 2 criteria? No. Patient's initial sepsis screen is negative. Does the patient have a suspected source of infection? No. Patient's initial sepsis screen is negative. Risk Assessment: Do you want to hurt yourself or someone else? Patient reports no desire to harm self or others. Onset of symptoms is unknown. 21:16 Method Of Arrival: Ambulatory dd2 21:16 Acuity: MICHAEL 3 dd2 Triage Assessment: 21:21 Bite description: bite sustained to palmar aspect of right forearm by UNKNOWN, animal dd2 information: vaccination(s) is not applicable. General: Appears in no apparent distress. Behavior is calm, cooperative, appropriate for age. Pain: Complains of pain in palmar aspect of right forearm. EENT: Reports. Respiratory: Reports shortness of breath at rest on exertion. Derm: Skin is red, RT FOREARM Reports burning, itching. 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 - Infectious Disease History:: Denies. - Social history:: Smoking status: Patient denies any tobacco usage or history of. Screenin:44 [facility] ED Fall Risk Assessment (Adult) History of falling in the last 3 months, tb4 including since admission No falls in past 3 months (0 pts) Confusion or Disorientation No (0 pts) Intoxicated or Sedated No (0 pts) Impaired Gait No (0 pts) Mobility Assist Device Used No (0 pt) Altered Elimination No (0 pt) Score/Fall Risk Level 0 - 2 = Low Risk Maintained a safe environment. Abuse screen: Denies threats or abuse. Denies injuries from another. Nutritional screening: No deficits noted. Tuberculosis screening: No symptoms or risk factors identified. Assessment: 23:44 General: Appears in no apparent distress. Behavior is calm, cooperative. Pain: Denies tb4 pain. Neuro: Level of Consciousness is awake, alert, obeys commands, Oriented to person, place, time, situation, Eyelet Cutter are equal bilaterally Moves all extremities. Full function Gait is steady, Speech is normal, Facial symmetry appears normal. Respiratory: Airway is patent Respiratory effort is even, unlabored, Respiratory pattern is regular, symmetrical. GI: No signs and/or symptoms were reported involving the gastrointestinal system. : No signs and/or symptoms were reported regarding the genitourinary system. EENT: No signs and/or symptoms were reported regarding the EENT system. Derm: Skin is intact, Skin is dry, Skin is normal, Skin temperature is warm Wound noted Rash noted that is raised, red and swollen Reports itching. Musculoskeletal: No signs and/or symptoms reported regarding the musculoskeletal system. Circulation, motion, and sensation intact. Range of motion: intact in all extremities. 03/16 00:51 Reassessment: Patient and/or family updated on plan of care and expected duration. Pain ha1 level reassessed. Patient is alert, oriented x 3, equal unlabored respirations, skin warm/dry/pink. Patient states feeling better. Patient states symptoms have improved. Vital Signs: 03/15 21:16 BP 139 / 88; Pulse 69; Resp 17; Temp 98.3; Pulse Ox 99% on R/A; Weight 75.75 kg; Height dd2 5 ft. 0 in. ; Pain 6/10; 23:44 BP 137 / 79; Pulse 76; Resp 16; Pulse Ox 98% on R/A; Weight 75.75 kg; Height 5 ft. 0 tb4 in. ; Pain 0/10; 03/16 00:51 BP 128 / 75; Pulse 71; Resp 18 S; Pulse Ox 100% on R/A; ha1 03/15 23:44 Body Mass Index 32.61 (75.75 kg, 152.4 cm) tb4 03/15 21:16 Pain Scale: Adult dd2 23:44 Pain Scale: Adult tb4 ED Course: 03/15 21:09 Patient arrived in ED. mr 21:16 Sean Rincon PA-C is PHCP. cp 21:16 Freddy Carnes DO is Attending Physician. cp 21:21 Triage completed. dd2 21:21 Arm band placed on right wrist. dd2 23:44 Patient has correct armband on for positive identification. Bed in low position. Call tb4 light in reach. Adult w/ patient. Client placed on continuous cardiac and pulse oximetry monitoring. NIBP monitoring applied. Door closed. 23:44 No provider procedures requiring assistance completed. tb4 03/16 00:52 Provided Education on: follow ups . ha1 00:52 Patient did not have IV access during this emergency room visit. ha1 Administered Medications: 03/15 23:43 Drug: MethylPREDNISolone Sodium Succinate IM 125 mg IM once Route: IM; Site: right tb4 ventrogluteal; 03/16 00:04 Follow up: Response: No adverse reaction tb4 03/15 23:43 Drug: Albuterol Inhalation 2.5 mg Inhalation once Route: Inhalation; tb4 03/16 00:04 Follow up: Response: No adverse reaction tb4 03/15 23:43 Drug: Ipratropium Inhalation Aerosol 0.5 mg Inhalation once Route: Inhalation; tb4 03/16 00:04 Follow up: Response: No adverse reaction tb4 Medication: 03/15 23:44 VIS not applicable for this client. tb4 Outcome: 03/16 00:24 Discharge ordered by . cp 00:52 Discharged to home ambulatory, ha1 00:52 Condition: stable 00:52 Discharge instructions given to patient, Instructed on discharge instructions, follow up and referral plans. medication usage, Demonstrated understanding of instructions, follow-up care, medications, Prescriptions given X 3, 00:52 Patient left the ED. ha1 Signatures: Amelie Ruiz, Reg Reg Sean Rincon PA-C PA-C cp Ayala, Heidy, RN RN ha1 [place] RN RN dd2 Sera Hercules RN RN tb4
[2025-03-16 01:01] VITALS: TEMP 98.3
[2025-03-16 01:04] VITALS: BP 128/75; O2SAT 100
== END 2025-03-16 00:52 | disposition home or self-care (01) ==
LOC: ER 21:07
DX: L25.9 Unspecified contact dermatitis, unspecified cause (principal); R06.2 Wheezing
CPT/HCPCS: 96372; 99284; J7613; J7644; J2919